=== PATIENT | female | born 1955 | race Caucasian/White ===

== ENCOUNTER 2017-01-21 20:00 | Emergency (ER) | payer MEDICARE ==
[2017-01-21] MEDS ORDERED: ASPIRIN TABLET 325 MG TAB PO ONE (20:14)
[2017-01-21] MEDS ORDERED: SODIUM CHLORIDE 0.9% (FLUSH) 10 ML SYG IV PRN (20:14)
--- NOTE | 2017-01-21 20:38 | ED.PDOC ---
History of Present Illness - General Chief Complaint: Chest Pain/MA Stated Complaint: chest pain/defrillator firing Time Seen by Provider: 01/21/17 20:24 Source: patient, RN notes reviewed, Vital Signs reviewed, EMS notes reviewed Exam Limitations: no limitations - History of Present Illness Initial Comments: Patient is a 61 y/o female who has a pacemaker and defibrillator. Since 1840, her defibrillator has gove off 4 times. She had no chest pain prior to the initial shock, however since then has had chest pain, pressure, shortness of breath, diaphoresis, nausea, and a severe headache. Her Electrocardiologist is Dr. Edwardo Love in [facility]. Timing/Duration: 1-3 hours Severity: moderate, severe Improving Factors: nothing Worsening Factors: other - defibrillator firing Associated Symptoms: chest pain, diaphoresis, headaches, nausea/vomiting, shortness of breath Allergies/Adverse Reactions: Allergies Erythromycin Allergy (Severe, Verified 04/26/16 16:25) Other severe GI issues Nicergoline [Ergot Alkaloids] Allergy (Severe, Verified 04/26/16 16:25) Sulfa Drugs Allergy (Intermediate, Verified 04/26/16 16:25) Other severe yeast infection Sitagliptin [From Januvia] Adverse Reaction (Verified 04/26/16 16:25) Home Medications: Ambulatory Orders Furosemide 40 mg PO BID 11/05/13 Budesonide-Formoterol Fumarate [Symbicort 160-4.5 Mcg/Act] 1 inh IN BID Celecoxib [Celebrex] 200 mg PO DAILY 02/08/16 Cetirizine HCl [Zyrtec Allergy] 10 mg PO DAILY PRN 02/08/16 Clonazepam [Klonopin] 1 mg PO BEDTIME 02/08/16 DULoxetine HCL [Cymbalta] 30 mg PO BID 02/08/16 Dextromethorphan-Guaifenesin [Mucinex Dm 30-600 mg] 1 tab PO Q12HR 02/08/16 Ergocalciferol [Vitamin D] 50,000 unit PO WKLY 02/08/16 Fluticasone Propionate (Nasal) [Flonase Allergy Relief] 2 spray MADIE DAILY Hydroxychloroquine Sulfate [Hydroxychloroquine Sulfat] 400 mg PO DAILY 02/08/16 Insulin Glargine [Lantus Solostar] 73 unit SC BID 02/08/16 Insulin Lispro [Humalog] 100 unit SC .SLIDING SCALE 02/08/16 Ipratropium [place] Hfa [Atrovent Hfa] 2 puff INH QID PRN 02/08/16 Levalbuterol HCl [Xopenex] 1.25 mg INH QID PRN 02/08/16 Losartan Potassium [Cozaar] 50 mg PO DAILY 02/08/16 Metformin HCl 500 mg PO BIDFD 02/08/16 Nitroglycerin [Nitrostat] 0.4 mg SL Q5MIN PRN 02/08/16 Ondansetron [Zofran Odt] 4 mg PO Q6HR PRN 02/08/16 Oxycodone W/ Acetaminophen [Percocet 10-325 mg] 1 tab PO QID PRN 02/08/16 Promethazine HCl [Phenergan] 25 mg SD Q6H PRN 02/08/16 Quetiapine Fumarate [Seroquel] 200 mg PO BEDTIME 02/08/16 Vilazodone HCl [Viibryd] 40 mg PO DAILY 02/08/16 Warfarin Sodium [Coumadin] 4 mg PO DAILY 02/08/16 cloNAZepam [Klonopin] 0.5 mg PO DAILY 02/08/16 Naloxegol Oxalate [Movantik] 25 mg PO DAILY #8 tab 02/11/16 Enoxaparin Sodium [Lovenox] 80 mg SUBCU DAILY 06/12/16 Lidocaine HCl [Enovarx-Lidocaine HCl] 5 % EX PRN 06/12/16 Mupirocin 2 % Oint [Bactroban Oint] 1 each TOP PRN 06/12/16 Pancrelipase (Lipase-Protease- [Creon 07142 Unit] 2 units PO TID 06/12/16 Pantoprazole Sodium [Protonix] 40 mg PO DAILY 06/12/16 Pregabalin [Lyrica] 25 mg PO BID 06/12/16 Levofloxacin [Levaquin] 250 mg PO DAILY #10 tab 09/12/16 Review of Systems - Review of Systems Constitutional: States: no symptoms reported EENTM: States: blurred vision Respiratory: States: short of breath Cardiology: States: chest pain Gastrointestinal/Abdominal: States: nausea Genitourinary: States: other - urinary hesitancy Musculoskeletal: States: back pain Skin: States: no symptoms reported Neurological: States: headache Endocrine: States: no symptoms reported Hematologic/Lymphatic: States: easy bruising Past Medical History (General) - Patient Medical History Hx Seizures: No Hx Stroke: No Hx Dementia: No Hx Asthma: No Hx of COPD: No Hx Cardiac Disorders: Yes - [place] Hx Congestive Heart Failure: No Hx Pacemaker: Yes - with defib Hx Hypertension: Yes Hx Thyroid Disease: Yes - parathyroids Hx Diabetes: Yes Hx Gastroesophageal Reflux: No - Takes medication to assist with constipation Hx Renal Disease: No Hx Cancer: No Hx of HIV: No Hx Hepatitis C: No Hx MRSA: No MRSA Source:: Wound - Vaccination History Hx Tetanus, Diphtheria Vaccination: Yes Hx Influenza Vaccination: No - 2016 Hx Pneumococcal Vaccination: Yes - Social History Hx Tobacco Use: Yes - Quit 2004 Hx Alcohol Use: No Hx Substance Use: No Hx Substance Use Treatment: No Hx Depression: No Hx Physical Abuse: No Hx Emotional Abuse: No Hx Suspected Abuse: No - Female History Patient : No Family Medical History - Family History Father Living Status: Age at (years of age): 69 Cause of : heart Mother Living Status: Still Living Hx Family Hypertension: Yes Hx Family Diabetes: Yes Physical Exam - Physical Exam General Appearance: Alert, Anxious, Obvious distress Ears, Nose, Throat: hearing grossly normal, normal ENT inspection Neck: full range of motion, normal inspection Respiratory: lungs clear, normal breath sounds, no respiratory distress, no accessory muscle use Cardiovascular/Chest: normal peripheral pulses, regular rate, rhythm, no edema, no gallop, no murmur Gastrointestinal/Abdominal: normal bowel sounds, non tender, soft, no organomegaly Extremity: normal inspection, no pedal edema Neurologic: alert, normal mood/affect, oriented x 3 Skin Exam: normal color, warm/dry Progress - Results/Orders Results/Orders: 01/21/17 01/21/17 01/21/17 20:05 20:15 21:01 Pulse Rate 80 Pulse Rate [ 81 88 78 monitor] Respiratory 16 20 Rate Blood Pressure 154/82 163/84 [Left Arm] O2 Sat by Pulse 97 96 Oximetry - EKG/XRAY/CT EKG: Sinus - 90 bpm - paced, Unchanged from - 07/25/2015 - 99bpm paced XRAY: chest Xray Comments: No acute process - Consult/PCP Time Called: 20:30 Consult/PCP: Dr. Rodriguez - certified rehabilitation counselor for Dr. Love Consult Reason/Comments: Transfer to ED in [place]. Start Amiodarone, 150 bolus, then drip Departure - Departure Clinical Impression: Defibrillator discharge Chest pain Qualifiers: Chest pain type: unspecified Qualifier Code: (R07.9) Chest pain, unspecified Time of Disposition: 21:10 Disposition: Transfer to Hospital Home Medications: Ambulatory Orders Furosemide 40 mg PO BID 11/05/13 Budesonide-Formoterol Fumarate [Symbicort 160-4.5 Mcg/Act] 1 inh IN BID Celecoxib [Celebrex] 200 mg PO DAILY 02/08/16 Cetirizine HCl [Zyrtec Allergy] 10 mg PO DAILY PRN 02/08/16 Clonazepam [Klonopin] 1 mg PO BEDTIME 02/08/16 DULoxetine HCL [Cymbalta] 30 mg PO BID 02/08/16 Dextromethorphan-Guaifenesin [Mucinex Dm 30-600 mg] 1 tab PO Q12HR 02/08/16 Ergocalciferol [Vitamin D] 50,000 unit PO WKLY 02/08/16 Fluticasone Propionate (Nasal) [Flonase Allergy Relief] 2 spray MADIE DAILY Hydroxychloroquine Sulfate [Hydroxychloroquine Sulfat] 400 mg PO DAILY 02/08/16 Insulin Glargine [Lantus Solostar] 73 unit SC BID 02/08/16 Insulin Lispro [Humalog] 100 unit SC .SLIDING SCALE 02/08/16 Ipratropium [place] Hfa [Atrovent Hfa] 2 puff INH QID PRN 02/08/16 Levalbuterol HCl [Xopenex] 1.25 mg INH QID PRN 02/08/16 Losartan Potassium [Cozaar] 50 mg PO DAILY 02/08/16 Metformin HCl 500 mg PO BIDFD 02/08/16 Nitroglycerin [Nitrostat] 0.4 mg SL Q5MIN PRN 02/08/16 Ondansetron [Zofran Odt] 4 mg PO Q6HR PRN 02/08/16 Oxycodone W/ Acetaminophen [Percocet 10-325 mg] 1 tab PO QID PRN 02/08/16 Promethazine HCl [Phenergan] 25 mg SD Q6H PRN 02/08/16 Quetiapine Fumarate [Seroquel] 200 mg PO BEDTIME 02/08/16 Vilazodone HCl [Viibryd] 40 mg PO DAILY 02/08/16 Warfarin Sodium [Coumadin] 4 mg PO DAILY 02/08/16 cloNAZepam [Klonopin] 0.5 mg PO DAILY 02/08/16 Naloxegol Oxalate [Movantik] 25 mg PO DAILY #8 tab 02/11/16 Enoxaparin Sodium [Lovenox] 80 mg SUBCU DAILY 06/12/16 Lidocaine HCl [Enovarx-Lidocaine HCl] 5 % EX PRN 06/12/16 Mupirocin 2 % Oint [Bactroban Oint] 1 each TOP PRN 06/12/16 Pancrelipase (Lipase-Protease- [Creon 32056 Unit] 2 units PO TID 06/12/16 Pantoprazole Sodium [Protonix] 40 mg PO DAILY 06/12/16 Pregabalin [Lyrica] 25 mg PO BID 06/12/16 Levofloxacin [Levaquin] 250 mg PO DAILY #10 tab 09/12/16 Transfer to Outside Facility - Transfer Information Accepting Facility: [facility] Reason for Transfer: required specialist not available
[2017-01-21] MEDS ORDERED: AMIODARONE IV (LOAD) 150 MG in DEXTROSE 5% 100ML 100 ML IVPB ONE (20:45)
--- NOTE | 2017-01-21 20:48 | RAD ---
PROCEDURE: XR CHEST 1 VIEW HISTORY: chest pain COMPARISON: 10/02/2016 TECHNIQUE: Single projection of the chest was done. FINDINGS: The left-sided AICD device is stable . There are no discrete airspace infiltrates, pneumothoraces or pleural effusions. The pulmonary vascularity is normal. The cardiomediastinal contour is stable . IMPRESSION: There is no acute pleural-parenchymal process seen in the imaged lung [place]. Location of Interpretation: Teleradiology Electronically signed by: Ismael Cook MD 01/21/2017 8:47 PM [employer]
[2017-01-21] MEDS ORDERED: AMIODARONE HCL 150 MG/3 ML VIAL IVPB ONE (20:52)
[2017-01-21] MEDS ORDERED: DEXTROSE 5% 100ML 100 ML IVPB ONE (20:52)
[2017-01-21] MEDS ORDERED: AMIODARONE IV (MAINT) 900 MG in DEXTROSE 5% (AVIVA) 500ML 500 ML IVPB SCH (21:00)
[2017-01-21] MEDS ORDERED: AMIODARONE HCL 900 MG/18 ML VIAL IVPB ONE (21:10)
[2017-01-21] MEDS ORDERED: DEXTROSE 5% (AVIVA) 500ML 500 ML IVPB ONE (21:10)
[2017-01-21] MEDS ORDERED: SODIUM CHLORIDE 0.9% 1000ML 1,000 ML ONE (21:17)
[2017-01-21 21:19] VITALS: BP 151/108; O2SAT 95
[2017-01-21 21:21] VITALS: TEMP 98.4
== END 2017-01-21 21:45 | disposition short-term general hospital (02) ==
LOC: ER 20:00
DX: T82.198A Other mechanical complication of other cardiac electronic device, initial encounter (principal); R07.9 Chest pain, unspecified; I25.2 Old myocardial infarction; I10 Essential (primary) hypertension; Z87.891 Personal history of nicotine dependence; E20.9 Hypoparathyroidism, unspecified; E11.9 Type 2 diabetes mellitus without complications; Z79.899 Other long term (current) drug therapy; Z79.4 Long term (current) use of insulin; Z79.01 Long term (current) use of anticoagulants; Z88.2 Allergy status to sulfonamides; Z88.3 Allergy status to other anti-infective agents
CPT/HCPCS: 71010; 80048; 82550; 82553; 83880; 84484; 85025; 85610; 85730; 93005; 94760; J0282; J7030; J7060

== ENCOUNTER → 2017-05-06 | Outpatient (CLI) | payer MEDICARE | END | disposition home or self-care (01) | LOC: NC 12:00 | PROVIDERS: ATTEND Family Medicine | DX: I50.32 Chronic diastolic (congestive) heart failure (principal); E11.9 Type 2 diabetes mellitus without complications; E03.9 Hypothyroidism, unspecified; M79.7 Fibromyalgia; R30.0 Dysuria ==

== ENCOUNTER → 2017-05-15 | Outpatient (CLI) | payer MEDICARE | END | disposition home or self-care (01) | LOC: NC 15:33 | PROVIDERS: ATTEND Family Medicine | DX: I11.0 Hypertensive heart disease with heart failure (principal); I50.22 Chronic systolic (congestive) heart failure ==

== ENCOUNTER → 2017-05-29 | Outpatient (CLI) | payer MEDICARE | END | disposition home or self-care (01) | LOC: NC 17:13 | PROVIDERS: ATTEND Family Medicine | DX: I11.0 Hypertensive heart disease with heart failure (principal); I50.22 Chronic systolic (congestive) heart failure ==

== ENCOUNTER → 2017-06-05 | Outpatient (CLI) | payer MEDICARE | END | disposition home or self-care (01) | LOC: NC 11:52 | PROVIDERS: ATTEND Family Medicine | DX: I11.0 Hypertensive heart disease with heart failure (principal); I50.22 Chronic systolic (congestive) heart failure ==

== ENCOUNTER → 2017-06-11 | Outpatient (CLI) | payer MEDICARE | LOC: NC 17:26 | PROVIDERS: ATTEND Family Medicine | DX: I50.22 Chronic systolic (congestive) heart failure (principal); I11.0 Hypertensive heart disease with heart failure ==

== ENCOUNTER → 2017-06-16 | Outpatient (CLI) | payer MEDICARE | END | disposition home or self-care (01) | LOC: NC 16:51 | PROVIDERS: ATTEND Family Medicine | DX: I50.22 Chronic systolic (congestive) heart failure (principal) ==

== ENCOUNTER → 2017-06-20 | Outpatient (CLI) | payer MEDICARE | END | disposition home or self-care (01) | LOC: NC 11:12 | PROVIDERS: ATTEND Family Medicine | DX: I11.0 Hypertensive heart disease with heart failure (principal); I50.22 Chronic systolic (congestive) heart failure; E11.9 Type 2 diabetes mellitus without complications ==

== ENCOUNTER → 2017-06-25 | Outpatient (CLI) | payer MEDICARE | END | disposition home or self-care (01) | LOC: NC 15:11 | PROVIDERS: ATTEND Family Medicine | DX: I11.0 Hypertensive heart disease with heart failure (principal); I50.22 Chronic systolic (congestive) heart failure; J44.9 Chronic obstructive pulmonary disease, unspecified; E11.9 Type 2 diabetes mellitus without complications; M19.90 Unspecified osteoarthritis, unspecified site ==

== ENCOUNTER → 2017-07-02 | Outpatient (CLI) | payer MEDICARE | END | disposition home or self-care (01) | LOC: NC 15:58 | PROVIDERS: ATTEND Family Medicine | DX: I11.0 Hypertensive heart disease with heart failure (principal); I50.22 Chronic systolic (congestive) heart failure; E11.9 Type 2 diabetes mellitus without complications; J44.9 Chronic obstructive pulmonary disease, unspecified ==

== ENCOUNTER 2017-07-03 12:33 | Observation (INO) | payer MEDICARE, OTHER ==
[2017-07-03] MEDS ORDERED: SUCRALFATE 1 GM/10 ML 1 GM UD PO ONE (13:08)
[2017-07-03] MEDS ORDERED: SODIUM CHLORIDE 0.9% 1000ML 1,000 ML IVS ONE (13:08)
[2017-07-03] MEDS ORDERED: PANTOPRAZOLE SODIUM IV 40 MG VIAL IV ONE (13:08)
[2017-07-03] MEDS ORDERED: PROMETHAZINE HCL INJ 25 MG in SODIUM CHLORIDE 0.9% 50ML 50 ML IVPB ONE (13:08)
--- NOTE | 2017-07-03 13:37 | RAD ---
3 view abdomen. Indication: nvd 3d Comparison: May 14, 2016 Impression: Moderately megaly. Right pacemaker. No failure. Lungs clear. Surgical construct proximal right humerus. Cholecystectomy clips. No free air. Mild constipation noted. No signs of small bowel insertion. Projecting over the medial right acetabulum/root there is ill-defined high density, which likely reflects high density material within the cecum. A lesion of the acetabulum is felt much less likely. Follow-up radiographs in one week recommended to ensure resolution of this appearance. No abnormal calcifications. No acute osseous abnormality. Electronically signed by: Lorenzo Florez MD 07/03/2017 1:36 PM CDT
[2017-07-03] MEDS ORDERED: SODIUM CHLORIDE 0.9% 50ML 50 ML ONE (13:39)
[2017-07-03] MEDS ORDERED: PROMETHAZINE HCL INJ 25 MG/ML VIAL ONE (13:39)
[2017-07-03] MEDS ORDERED: INSULIN LISPRO 100 UNITS/ML PEN SUBCU ONE (14:26)
[2017-07-03] MEDS ORDERED: MAGNESIUM SULFATE PREMIX 2GM 2 GM in PREMIX BAG 1 BAG IVPB ONE (14:27)
[2017-07-03] MEDS ORDERED: MAGNESIUM SULFATE PREMIX 2GM 50 ML IVPB ONE (14:36)
--- NOTE | 2017-07-03 14:39 | ED.PDOC ---
History of Present Illness - General Chief Complaint: GI Problem Stated Complaint: N/V/D Time Seen by Provider: 07/03/17 12:39 Source: patient Exam Limitations: no limitations - History of Present Illness Initial Comments: The patient is a 62-year-old female with a multitude of chronic medical problems sent up by her primary care doctor and home health for 3 days of nausea vomiting and diarrhea. No fevers. No real abdominal pain. She does have a history of recurrent chronic pancreatitis. No recent medication changes. No recent antibiotics. She has not been able to eat or drink very well for the last few days. She has also not been following her blood sugars closely. She is an insulin-dependent diabetic. She is feeling weak and achy. Severity: moderate Improving Factors: nothing Worsening Factors: nothing Associated Symptoms: loss of appetite, malaise, nausea/vomiting, weakness Allergies/Adverse Reactions: Allergies Erythromycin Allergy (Severe, Verified 04/26/16 16:25) Other severe GI issues Nicergoline [Ergot Alkaloids] Allergy (Severe, Verified 04/26/16 16:25) Sulfa Drugs Allergy (Intermediate, Verified 04/26/16 16:25) Other severe yeast infection Sitagliptin [From Januvia] Adverse Reaction (Verified 04/26/16 16:25) Home Medications: Ambulatory Orders Furosemide 40 mg PO BID 11/05/13 Budesonide-Formoterol Fumarate [Symbicort 160-4.5 Mcg/Act] 1 inh IN BID Celecoxib [Celebrex] 200 mg PO DAILY 02/08/16 Cetirizine HCl [Zyrtec Allergy] 10 mg PO DAILY PRN 02/08/16 Clonazepam [Klonopin] 1 mg PO BEDTIME 02/08/16 DULoxetine HCL [Cymbalta] 30 mg PO BID 02/08/16 Dextromethorphan-Guaifenesin [Mucinex Dm 30-600 mg] 1 tab PO Q12HR 02/08/16 Ergocalciferol [Vitamin D] 50,000 unit PO WKLY 02/08/16 Fluticasone Propionate (Nasal) [Flonase Allergy Relief] 2 spray MADIE DAILY Hydroxychloroquine Sulfate [Hydroxychloroquine Sulfat] 400 mg PO DAILY 02/08/16 Insulin Glargine [Lantus Solostar] 73 unit SC BID 02/08/16 Insulin Lispro [Humalog] 100 unit SC .SLIDING SCALE 02/08/16 Ipratropium [place] Hfa [Atrovent Hfa] 2 puff INH QID PRN 02/08/16 Levalbuterol HCl [Xopenex] 1.25 mg INH QID PRN 02/08/16 Losartan Potassium [Cozaar] 50 mg PO DAILY 02/08/16 Metformin HCl 500 mg PO BIDFD 02/08/16 Nitroglycerin [Nitrostat] 0.4 mg SL Q5MIN PRN 02/08/16 Ondansetron [Zofran Odt] 4 mg PO Q6HR PRN 02/08/16 Oxycodone W/ Acetaminophen [Percocet 10-325 mg] 1 tab PO QID PRN 02/08/16 Promethazine HCl [Phenergan] 25 mg OK Q6H PRN 02/08/16 Quetiapine Fumarate [Seroquel] 200 mg PO BEDTIME 02/08/16 Vilazodone HCl [Viibryd] 40 mg PO DAILY 02/08/16 Warfarin Sodium [Coumadin] 4 mg PO DAILY 02/08/16 cloNAZepam [Klonopin] 0.5 mg PO DAILY 02/08/16 Naloxegol Oxalate [Movantik] 25 mg PO DAILY #8 tab 02/11/16 Enoxaparin Sodium [Lovenox] 80 mg SUBCU DAILY 06/12/16 Lidocaine HCl [Enovarx-Lidocaine HCl] 5 % EX PRN 06/12/16 Mupirocin 2 % Oint [Bactroban Oint] 1 each TOP PRN 06/12/16 Pancrelipase (Lipase-Protease- [Creon 07984 Unit] 2 units PO TID 06/12/16 Pantoprazole Tablet [Protonix] 40 mg PO DAILY 06/12/16 Pregabalin [Lyrica] 25 mg PO BID 06/12/16 Levofloxacin [Levaquin] 250 mg PO DAILY #10 tab 09/12/16 Review of Systems - Review of Systems Constitutional: States: malaise, weakness EENTM: States: no symptoms reported Respiratory: States: no symptoms reported Cardiology: States: no symptoms reported Gastrointestinal/Abdominal: States: diarrhea, nausea, vomiting Genitourinary: States: no symptoms reported Musculoskeletal: States: no symptoms reported Skin: States: no symptoms reported Neurological: States: no symptoms reported Endocrine: States: increased thirst All other Systems: No Change from Baseline Past Medical History (General) - Patient Medical History Hx Seizures: No Hx Stroke: No Hx Dementia: No Hx Asthma: No Hx of COPD: No Hx Cardiac Disorders: Yes - RI Hx Congestive Heart Failure: No Hx Pacemaker: Yes - with defib Hx Hypertension: Yes Hx Thyroid Disease: Yes - parathyroids Hx Diabetes: Yes Hx Gastroesophageal Reflux: No - Takes medication to assist with constipation Hx Renal Disease: No Hx Cancer: No Hx of HIV: No Hx Hepatitis C: No Hx MRSA: No MRSA Source:: Wound Surgical History: cholecystectomy, pacemaker, tonsillectomy, Hysterectomy - Vaccination History Hx Tetanus, Diphtheria Vaccination: Yes Hx Influenza Vaccination: Yes Hx Pneumococcal Vaccination: Yes - Social History Hx Tobacco Use: Yes Hx Alcohol Use: Yes Hx Substance Use: No Hx Substance Use Treatment: No Hx Depression: Yes Hx Physical Abuse: No Hx Emotional Abuse: No Hx Suspected Abuse: No - Female History Patient : No Family Medical History - Family History Father Living Status: Age at (years of age): 69 Cause of : heart Mother Living Status: Still Living Hx Family Hypertension: Yes Hx Family Diabetes: Yes Physical Exam - Physical Exam General Appearance: Alert, Comfortable, No apparent distress Eye Exam: bilateral normal Ears, Nose, Throat: hearing grossly normal, normal ENT inspection, normal pharynx Neck: non-tender, full range of motion, supple Respiratory: chest non-tender, lungs clear, normal breath sounds, no respiratory distress, no accessory muscle use Cardiovascular/Chest: normal peripheral pulses, no edema, other - regular rate Peripheral Pulses: radial,right: 2+, radial,left: 2+, dorsalis pedis,right: 2+, dorsalis pedis,left: 2+ Gastrointestinal/Abdominal: non tender, soft Rectal Exam: deferred Back Exam: no CVA tenderness, no vertebral tenderness Extremity: normal range of motion, non-tender, normal inspection, no pedal edema , normal capillary refill 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 The patient does have a history of chronic pancreatitis which may be giving the symptoms however her amylase and lipase are within normal limits. Constipation is seen on the x-ray and that is along-term problem for her and this may ultimately be the cause of her GI symptoms. The patient does have a low magnesium level and is given some IV magnesium here. She is dehydrated and is receiving IV fluids. Her diabetes is uncontrolled likely related to dehydration. The patient did receive 7 units of insulin lispro and will need a recheck. She does not appear to be acidotic at this time. A urinalysis is still pending. She has responded well to anti- emetics here. admit for further hydration and correction of her diabetes. The patient may yet need a laxative. She has received GI medications for the gastritis and nausea. - Results/Orders Results/Orders: Laboratory Tests 07/03/17 07/03/17 07/03/17 13:10 13:10 13:10 WBC 5.7 RBC 5.26 Hgb 14.0 Hct 42.0 MCV 79.7 L MCH 26.6 L MCHC 33.4 RDW 14.5 Plt Count 169 MPV 8.4 Absolute Neuts (auto) 3.90 Absolute Lymphs (auto) 1.30 Absolute Monos (auto) 0.30 Absolute Eos (auto) 0.10 Absolute Basos (auto) 0.10 Neutrophils % 69.1 Lymphocytes % 22.5 Monocytes % 5.8 Eosinophils % 1.6 Basophils % 1.0 PT 14.2 H INR 1.260 PTT (SP) 37.8 H Sodium 136 Potassium 4.4 Chloride 98 L Carbon Dioxide 24 Anion Gap 18.4 H BUN 16 Creatinine 1.06 BUN/Creatinine Ratio 15.1 Random Glucose 385 H Serum Osmolality 289.1 Calcium 10.5 H Magnesium 1.6 L Total Bilirubin 0.8 AST 36 ALT 81 H Alkaline Phosphatase 121 Creatine Kinase 97 CK-MB (CK-2) 2.1 CK-MB (CK-2) % Not Reportable Troponin I 0.05 B-Natriuretic Peptide 116.0 H Serum Total Protein 7.7 Albumin 4.6 Globulin 3.1 Albumin/Globulin Ratio 1.5 Amylase 38 Lipase 47 urinalysis is still pending at this time. Abdominal series shows moderate constipation. Otherwise no acute pathology. Departure - Departure Clinical Impression: Dehydration Constipation Qualifiers: Constipation type: slow transit constipation Qualified Code(s): K59.01 - Slow transit constipation Uncontrolled diabetes mellitus Qualifiers: Diabetes mellitus type: type 2 Diabetes mellitus complication status: with unspecified complications Disposition: Admit Patient Referrals: Albert Soliman MD [Primary Care Provider] - 1-2 Weeks Home Medications: Ambulatory Orders Furosemide 40 mg PO BID 11/05/13 Budesonide-Formoterol Fumarate [Symbicort 160-4.5 Mcg/Act] 1 inh IN BID Celecoxib [Celebrex] 200 mg PO DAILY 02/08/16 Cetirizine HCl [Zyrtec Allergy] 10 mg PO DAILY PRN 02/08/16 Clonazepam [Klonopin] 1 mg PO BEDTIME 02/08/16 DULoxetine HCL [Cymbalta] 30 mg PO BID 02/08/16 Dextromethorphan-Guaifenesin [Mucinex Dm 30-600 mg] 1 tab PO Q12HR 02/08/16 Ergocalciferol [Vitamin D] 50,000 unit PO WKLY 02/08/16 Fluticasone Propionate (Nasal) [Flonase Allergy Relief] 2 spray MADIE DAILY Hydroxychloroquine Sulfate [Hydroxychloroquine Sulfat] 400 mg PO DAILY 02/08/16 Insulin Glargine [Lantus Solostar] 73 unit SC BID 02/08/16 Insulin Lispro [Humalog] 100 unit SC .SLIDING SCALE 02/08/16 Ipratropium [place] Hfa [Atrovent Hfa] 2 puff INH QID PRN 02/08/16 Levalbuterol HCl [Xopenex] 1.25 mg INH QID PRN 02/08/16 Losartan Potassium [Cozaar] 50 mg PO DAILY 02/08/16 Metformin HCl 500 mg PO BIDFD 02/08/16 Nitroglycerin [Nitrostat] 0.4 mg SL Q5MIN PRN 02/08/16 Ondansetron [Zofran Odt] 4 mg PO Q6HR PRN 02/08/16 Oxycodone W/ Acetaminophen [Percocet 10-325 mg] 1 tab PO QID PRN 02/08/16 Promethazine HCl [Phenergan] 25 mg OK Q6H PRN 02/08/16 Quetiapine Fumarate [Seroquel] 200 mg PO BEDTIME 02/08/16 Vilazodone HCl [Viibryd] 40 mg PO DAILY 02/08/16 Warfarin Sodium [Coumadin] 4 mg PO DAILY 02/08/16 cloNAZepam [Klonopin] 0.5 mg PO DAILY 02/08/16 Naloxegol Oxalate [Movantik] 25 mg PO DAILY #8 tab 02/11/16 Enoxaparin Sodium [Lovenox] 80 mg SUBCU DAILY 06/12/16 Lidocaine HCl [Enovarx-Lidocaine HCl] 5 % EX PRN 06/12/16 Mupirocin 2 % Oint [Bactroban Oint] 1 each TOP PRN 06/12/16 Pancrelipase (Lipase-Protease- [Creon 42322 Unit] 2 units PO TID 06/12/16 Pantoprazole Tablet [Protonix] 40 mg PO DAILY 06/12/16 Pregabalin [Lyrica] 25 mg PO BID 06/12/16 Levofloxacin [Levaquin] 250 mg PO DAILY #10 tab 09/12/16 Decision To Admit - Decistion To Admit Decision to Admit Reason: Medical Nature Decision to Admit Date: 07/03/17 Decision to Admit Time: 14:43
--- NOTE | 2017-07-03 14:50 | HP ---
SUPERVISING PHYSICIAN: Karri Kim M.D. CHIEF COMPLAINT: Nausea, vomiting and diarrhea. HISTORY OF PRESENT ILLNESS: Ms. Mendez is a 62 year-old female patient of Dr. Soliman's with a longstanding history of multiple medical problems to include diabetes and chronic obstructive pulmonary disease. She was referred to [facility] by the home health nurse as the patient had been experiencing 3 days of nausea, vomiting and diarrhea. She denied any fever or any abdominal pains, but notes that she does have a recurring history of chronic pancreatitis. She denied any recent changes in her medication regimen or any antibiotics in the last month. She notes that she has not been able to eat or drink very well for over the last 48 hours. She has not been monitoring her blood sugars very well as she is insulin dependent. Laboratory studies showed CBC with a normal white count of 5.7, hemoglobin 14, hematocrit 42.0, platelet count 169,000. Differential was within normal limits. Chemistries showed normal electrolytes with potassium 4.4, glucose 385, calcium 2.5, magnesium was low at 1.6. Liver functions showed a slightly elevated ALT at 81 , BNP was normal at 116 as well as her pancreatic enzymes were within normal limits on admission. Urinalysis showed just 500 glucose, otherwise was within normal limits. Radiographic studies completed in the Emergency Room included an abdominal x-ray and per radiology interpretation there was note of constipation. The patient was given magnesium sulfate IV in the Emergency Department and Phenergan for nausea, and started on Protonix as well as given insulin. Given her multiple co-morbidities including insulin-dependent diabetes and inability to hold any oral intake secondary to nausea complicated by diarrhea, Dr. Soliman, Janna Russell. physician, requested the patient be admitted for continuation of treatment for initiation of fluids and further evaluation. There is concern that the patient, with a history of chronic pancreatitis, is in the early stages of developing acute pancreatitis. The patient was admitted in stable condition to the Medical/Surgical floor. PAST MEDICAL HISTORY: 1. Type 2 diabetes mellitus on insulin. 2. Congestive heart failure, estimated ejection fraction of 40% by an echocardiogram noted on 05/2017. 3. Systolic atrial blood clot on chronic Coumadin therapy. 4. Asthma. 5. Chronic obstructive pulmonary disease. 6. Chronic pancreatitis. 7. Migraines. 8. Hypothyroidism. 9. Osteoarthritis. 10. Depression. 11. Gastroesophageal reflux disease. 12. Hyperlipidemia. 13. Osteoporosis. 14. Fibromyalgia. 15. Iron deficiency anemia. PAST SURGICAL HISTORY: 1. Appendectomy. 2. Cholecystectomy. 3. Thyroidectomy. 4. Hysterectomy. 5. Laminectomy of L4-L5. 6. Titanium chrystal in right arm. 7. Dilatation and curettage. CURRENT MEDICATIONS: 1. Toujeo 120 unit at bedtime. 2. [place] 1 tablet p.r.n. 3. Humalog sliding scale. 4. Flonase 2 sprays daily. 5. Symbicort 160-4.5 mcg per actuation 1 inhaled twice daily. 6. Benadryl 25 mg at bedtime. 7. Klonopin 0.5 mg daily. 8. Coumadin 4 mg daily. 9. Trintellix 10 mg daily. 10. Seroquel 200 mg at bedtime. 11. Seroquel 200 mg at bedtime. 12. Phenergan 25 mg every 6 hours p.r.n. for nausea. 13. Creon 24,000 unit, 2 units p.o. 3 times a day. 14. Nitrostat 0.4 mg for chest pains. 15. Metformin 500 mg twice daily. 16. Cozaar 50 mg daily. 17. Xopenex 1.25 mg q.i.d. p.r.n. 18. Atrovent handheld inhaler 2 puffs q.i.d. as needed. 19. Guaifenesin 40 mg daily. 20. Klonopin 1 mg at bedtime. 21. Zyrtec allergy 10 mg daily. 22. Fiber-Lax 625 mg daily. ALLERGIES: ERYTHROMYCIN, NICERGOLINE, SULFA DRUGS, SITAGLIPTIN, ERGOT, ALKALOIDS. FAMILY HISTORY: Father at age 69 with heart problems. Mother has hypertension and type 2 diabetes. She has 1 sister who has had brain cancer. SOCIAL HISTORY: The patient is . She lives with her mother and daughter. She has a history of cigarette smoking but quit 30 years ago. She denies any alcohol or illicit drug use. REVIEW OF SYSTEMS: CONSTITUTIONAL: Has general malaise and weakness as noted in the History of Present Illness. Denies any fevers, chills or unintentional weight loss or gain. HEENT: Denies any nasal congestion. She does have a history of allergies seasonal. RESPIRATORY: No reported cough, dyspnea or wheezing. CARDIOVASCULAR: No chest pains, palpitations or tachycardia. GASTROINTESTINAL: As noted in the History of Present Illness, positive for nausea, vomiting and diarrhea. NEUROLOGIC: Denies any syncopal episodes, vision changes, motor weaknesses or other neurological symptoms. PHYSICAL EXAMINATION: VITAL SIGNS: On admission, temperature 97.1, pulse 79, blood pressure 157/83, respirations 13, satting 97% on room air. Admission weight 76.6 kg. GENERAL: The patient appears to be in no acute distress. She is ill-appearing but she is alert. Looks somewhat dehydrated. HEENT: Tympanic membranes are clear bilaterally. Oropharynx was pink. Mucosal membranes were dry. There are no lesions noted. NECK: Supple, non-tender with full range of motion with no jugular venous distention. CHEST: Lungs were clear to auscultation bilaterally without any rhonchi, wheezing or rales. CARDIOVASCULAR: Heart was regular rate and rhythm without appreciable murmurs, gallops, or rubs. ABDOMEN: Non-tender, soft. Positive bowel sounds. She has a past history of having black tarry stools for which she is being followed by Dr. Price. EXTREMITIES: No clubbing, cyanosis or edema. NEUROLOGIC: Cranial nerves II-XII are grossly intact. She is alert and oriented times three. Facial features were symmetrical. Extraocular movements were within normal limits. There was no noted nystagmus. LABORATORY: CBC showed a normal white count of 5.7 with hemoglobin 14, hematocrit 42.0, platelet count 169,000. Differential did show to be within normal limits. Coagulation studies showed a slightly elevated PT of 14.2 with INR 1.26, PTT 37.8. Chemistries showed normal electrolytes with potassium 4.4 with an elevated anion gap of 18.4 with BUN 16, creatinine 1.06, glucose was 385 initially, calcium 10.5, magnesium was low at 1.6. Liver functions showed to be within normal limits except for a slightly elevated ALT at 81. Troponin was 0.05. BNP was 116. Lipase and amylase were both within normal limits. Urinalysis showed 500 of glucose, otherwise within normal limits. RADIOLOGY: Abdominal x-ray per radiology interpretation showed mild constipation noted but no signs of small bowel obstruction. There was note of a medial right acetabular ill-defined high density likely reflects high density material within the cecum. Recommend followup. ASSESSMENT: 1. Moderate dehydration complicated by multiple co-morbidities to include history of chronic pancreatitis and insulin-dependent diabetes secondary to nausea , vomiting and diarrhea with uncertain etiology possibly a viral gastroenteritis. 2. Moderate constipation as noted on radiographic studies possibly contributing to some of her nausea and vomiting symptoms in a patient who is on chronic opioid therapy. 3. Hypomagnesemia secondary to persistent diarrhea. 4. Type 2 diabetes mellitus with metabolic acidosis as noted on elevated anion gap without any evidence of ketoacidosis secondary to persistent nausea, vomiting and dehydration, and poor medical compliance with insulin regimen. 5. Concern for developing acute on chronic pancreatitis. 6. Hypertension. 7. Gastroesophageal reflux disease. 8. Depression. 9. Congestive heart failure, estimated ejection fraction of 40% by an echocardiogram noted on 05/2017. 10. Systolic atrial blood clot on chronic Coumadin therapy. 11. Past history of melenic stools followed by Dr. Price felt to be secondary to iron therapy with a colonoscopy scheduled in the coming month. 12. Iron deficiency anemia on iron replacement. PLAN: The patient will be admitted to the hospital for initiation of fluids cautiously secondary to her history of heart failure to assist in reestablishing a normal fluid balance. She will be given Zofran for antiemetic. Given that she is moderately constipated, will start with a soap suds enema and once she has good results and is no longer having any nausea, will follow this up with Milk of Magnesia possibly in the morning. She will be started on Protonix IV for ulcer prophylaxis. She will be started on insulin sliding scale as per protocol. Will plan to repeat laboratory studies in the morning. Anticipate length of stay to be 2 to 3 days. She will remain NPO for bowel rest until she is no longer having any nausea and once again is showing good catharsis with the above enema and then Milk of Magnesia. At that point, will advance her diet as tolerated to an 1800 calorie ADA diet. Will resume her home medications once they have been updated and verified in the electronic medical records. Depending on the patient's clinical reassessment in the morning, we may pursue a CT of the abdomen to further evaluate for developing possibly pancreatitis. In regards to the Coumadin, will recheck a PT in the morning and followup on dosing with Dr. Soliman's office in regards to required therapeutic levels. Until discharge, will continue to monitor the patient closely and treat appropriately. #[id number] [facility]
[2017-07-03] MEDS ORDERED: ACETAMINOPHEN 325 MG TAB PO PRN (15:38)
[2017-07-03] MEDS ORDERED: SODIUM CHLORIDE 0.9% (FLUSH) 10 ML SYG IV PRN (15:38)
[2017-07-03] MEDS ORDERED: GLUCAGON INJ 1 MG VIAL SUBCU PRN (15:38)
[2017-07-03] MEDS ORDERED: DEXTROSE 50% 25 GM/50 ML SYG IV PRN (15:38)
[2017-07-03] MEDS ORDERED: MAGNESIUM HYDROXIDE 30 ML UD PO PRN (15:38)
[2017-07-03] MEDS ORDERED: IV SET AND CAP CHANGE INJ INJ SCH (16:00)
[2017-07-03] MEDS: KCL 20 MEQ/NS 1,000 ML IVS PRN (17:00)
[2017-07-03] MEDS: ONDANSETRON INJ 4 MG/2 ML VIAL IV PRN (17:00)
[2017-07-03] MEDS: INSULIN LISPRO 100 UNITS/ML PEN SUBCU SCH (18:07)
[2017-07-03] MEDS ORDERED: QUEtiapine FUMARATE 100 MG TAB ONE (19:49)
[2017-07-03] MEDS: diphenhydrAMINE HCL 25 MG CAP PO SCH (20:22)
[2017-07-03] MEDS: HYDROcodone 10MG/APAP 325MG 1 EA TAB PO SCH (20:23)
[2017-07-03] MEDS ORDERED: QUETIAPINE FUMARATE 200 MG PO SCH (21:00)
[2017-07-03] MEDS ORDERED: SODIUM CHLORIDE 0.9% (FLUSH) 10 ML SYG IV SCH (21:00)
[2017-07-03] MEDS ORDERED: NON-FORMULARY MEDICATION 1 EA MIS (Clonazepam [Klonopin] 1 MG) PO SCH (21:00)
[2017-07-03] MEDS ORDERED: INSULIN GLARGINE SC SCH (21:00)
[2017-07-03] MEDS: PANCRELIPASE PO SCH (21:26)
--- NOTE | 2017-07-03 21:41 | PCM.CORE ---
Physician DVT/VTE - Prophylaxis Currently: Patient already on anticoagulation therapy - Nurse DVT Assessment & Total Each Risk Factor Represents 3 Points: Medical PT with Hx of AL, CHF, Severe infection/sepsis Each Risk Factor Represents 2 Points: Age 60-74 Each Risk Factor is 1 Point: Obesity (BMI >25) DVT Assessment Score: 6 - 5 or more Very High Risk Treatments: Early Ambulation *, Sequential Compression Device Pharmacological: Warfarin daily
[2017-07-04] MEDS: INSULIN LISPRO 100 UNITS/ML PEN SUBCU SCH ×5 (00:26→21:02)
[2017-07-04] MEDS: HYDROcodone 10MG/APAP 325MG 1 EA TAB PO SCH (05:04)
[2017-07-04] MEDS: ONDANSETRON INJ 4 MG/2 ML VIAL IV PRN (05:04)
[2017-07-04] MEDS: KCL 20 MEQ/NS 1,000 ML IVS PRN ×2 (05:10→17:59)
[2017-07-04] MEDS: metFORMIN HCL 500 MG TAB PO SCH ×2 (07:53→16:31)
[2017-07-04] MEDS: BUDESONIDE/FORMOTEROL 160/4.5 60 PUFF/6 GM INH INH SCH ×3 (07:55→20:48)
[2017-07-04] MEDS ORDERED: WARFARIN SODIUM 2 MG TAB ONE (08:15)
[2017-07-04] MEDS: FLUTICASONE PROP 0.05% NASAL 16 GM BTTL BNAS SCH (09:16)
[2017-07-04] MEDS: CALCIUM POLYCARBOPHIL 625 MG TAB PO SCH (09:16)
[2017-07-04] MEDS: LOSARTAN POTASSIUM 25 MG TAB PO SCH (09:16)
[2017-07-04] MEDS: PANTOPRAZOLE SODIUM IV 40 MG VIAL IV SCH (09:17)
[2017-07-04] MEDS: PANCRELIPASE PO SCH ×3 (09:17→22:40)
[2017-07-04] MEDS: NON-FORMULARY MEDICATION 1 EA MIS (Vortioxetine Hbr [Trintellix] 10 MG) PO SCH (09:17)
[2017-07-04] MEDS: HYDROcodone 10MG/APAP 325MG 1 EA TAB PO PRN ×2 (09:50→20:39)
[2017-07-04] MEDS ORDERED: MAGNESIUM HYDROXIDE 30 ML UD PO ONE (10:12)
[2017-07-04] MEDS ORDERED: MAGNESIUM SULFATE PREMIX 2GM 2 GM in PREMIX BAG 1 BAG IVPB ONE (10:48)
[2017-07-04] MEDS ORDERED: MAGNESIUM SULFATE PREMIX 2GM 50 ML IVPB ONE (11:00)
[2017-07-04] MEDS: WARFARIN SODIUM 2 MG TAB PO SCH (11:57)
--- NOTE | 2017-07-04 16:23 | PN ---
DATE: 07-04-17 SUPERVISING PHYSICIAN: Karri Kim MD SUBJECTIVE: Patient reports she had minimal output with the enema last night. Blood sugars have been well controlled and she is no longer having any nausea or vomiting and denies any abdominal pains. She remains afebrile. OBJECTIVE: VITAL SIGNS: T-max 97,5, pulse 60, blood pressure 130/84, respirations 20, saturation 98% on nasal cannula at rest. I&O: positive balance of 173 with 1023 in and 850 out. Weight 77.5 kg. CHEST: Lungs clear to auscultation. HEART: Regular rate and rhythm . ABDOMEN: Soft, non-tender, partial small-bowel obstructions. EXTREMITIES: No cyanosis, clubbing, or edema. NEUROLOGIC: Alert and oriented x 3. LABORATORY: White count down to 4.4, hemoglobin 12.5, hematocrit 38.2, platelet count 155, 000, differential shows no left shift. Chemistries show normal electrolytes with potassium 4.4, glucoses have been 137 to 183, magnesium still low at 1.7. Liver functions showed to be within normal limits. Amylase and lipase were both normal. RADIOLOGY: No additional radiographic studies. ASSESSMENT: 1. Moderate dehydration improved after IV therapy. 2. Moderate constipation still requiring additional catharsis with both enema and oral medication.. 3. Hypomagnesemia, persistent despite IV replacement. . 4. Type 2 diabetes mellitus with metabolic acidosis as noted with elevated anion gap on admission but no ketoacidosis, probably secondary to persistent nausea, vomiting and dehydration, and poor medical compliance with insulin regimen , showing improvement after IV fluids with anion gap now normalized. 5. History of chronic pancreatitis with no evidence of pancreatitis at this time. 6. Hypertension. 7. Gastroesophageal reflux disease. 8. Depression. 9. Congestive heart failure, estimated ejection fraction of 40% by echocardiogram noted on 05/2017. 10. Systolic atrial blood clot on chronic Coumadin therapy. 11. History of melenic felt to be secondary to iron therapy currently followed by Dr. Price with colonoscopy scheduled in the coming month. 12. Iron deficiency anemia on iron replacement. PLAN: We will plan to advance the patient's diet today. She is no longer having any nausea, to clear liquids and will advance later this afternoon if tolerated to a diabetic diet. Ancipitate discharge tomorrow. Will work on catharsis again with milk of magnesia and another enema if needed. Plan to reevaluate laboratory studies in the morning as she is increasing her intake, decrease her fluids per saline lock. We will again recheck her Coumadin level in the morning as she was non therapeutic initially on admission. Until discharge, we will continue to monitor the patient closely and treat appropriately. #[id number] [facility]
[2017-07-04] MEDS ORDERED: MORPHINE SULFATE INJ 10 MG/ML VIAL IV ONE (16:39)
[2017-07-04] MEDS ORDERED: QUEtiapine FUMARATE 100 MG TAB ONE (19:59)
[2017-07-04] MEDS: diphenhydrAMINE HCL 25 MG CAP PO SCH (20:38)
[2017-07-04] MEDS ORDERED: QUEtiapine FUMARATE 100 MG TAB PO SCH (21:00)
[2017-07-04] MEDS ORDERED: INSULIN DETEMIR 100 UNITS/ML PEN SUBCU SCH (21:00)
[2017-07-05] MEDS: KCL 20 MEQ/NS 1,000 ML IVS PRN (05:45)
[2017-07-05 07:39] VITALS: BP 150/55; TEMP 97
[2017-07-05] MEDS: INSULIN LISPRO 100 UNITS/ML PEN SUBCU SCH ×2 (07:51→12:22)
[2017-07-05] MEDS: BUDESONIDE/FORMOTEROL 160/4.5 60 PUFF/6 GM INH INH SCH (08:06)
[2017-07-05] MEDS: metFORMIN HCL 500 MG TAB PO SCH (08:22)
[2017-07-05] MEDS: HYDROcodone 10MG/APAP 325MG 1 EA TAB PO PRN (08:40)
[2017-07-05] MEDS: LOSARTAN POTASSIUM 25 MG TAB PO SCH (08:41)
[2017-07-05] MEDS: CALCIUM POLYCARBOPHIL 625 MG TAB PO SCH (08:41)
[2017-07-05] MEDS: PANTOPRAZOLE SODIUM IV 40 MG VIAL IV SCH (08:42)
[2017-07-05] MEDS: FLUTICASONE PROP 0.05% NASAL 16 GM BTTL BNAS SCH (08:42)
[2017-07-05] MEDS ORDERED: ENOXAPARIN SODIUM 40 MG/0.4 ML SYG SUBCU SCH (09:00)
[2017-07-05] MEDS: PANCRELIPASE PO SCH (09:03)
[2017-07-05] MEDS: NON-FORMULARY MEDICATION 1 EA MIS (Vortioxetine Hbr [Trintellix] 10 MG) PO SCH (09:03)
[2017-07-05 10:27] VITALS: O2SAT 95
[2017-07-05] MEDS: WARFARIN SODIUM 2 MG TAB PO SCH (12:24)
--- NOTE | 2017-07-08 11:22 | DS ---
SUPERVISING PHYSICIAN: Karri Kim MD DISCHARGE DIAGNOSIS: 1. Moderate dehydration complicated by multiple comorbidities with concerns for possible viral gastroenteritis. 2. Moderate constipation as noted on radiographic studies, exacerbating nausea and vomiting secondary to chronic opioid therapy. 3. Hypomagnesemia, secondary to persistent diarrhea. 4. Type 2 diabetes mellitus initially with metabolic acidosis without any evidence of ketoacidosis, secondary to nausea, vomiting, dehydration and poor medical compliance with insulin regimen, showing improvement after IV fluids. 5. History of chronic pancreatitis. 6. Hypertension. 7. Gastroesophageal reflux disease. 8. Depression. 9. Congestive heart failure, estimated ejection fraction of 40% by echocardiogram noted on 05/2017. 10. Systolic atrial blood clot on chronic Coumadin therapy with subtherapeutic Coumadin levels on admission. 11. History of melenic stools, followed by Dr. Price, felt to be secondary to iron therapy with colonoscopy scheduled in July. 12. Iron deficiency anemia on iron replacement. HISTORY OF PRESENT ILLNESS: Ms. Mendez is a 62-year-old female patient of Dr. Soliman's with a longstanding history of multiple medical problems to include diabetes and chronic obstructive pulmonary disease. She was referred to Emergency Room by the home health nurse as the patient had been experiencing 3 days of nausea, vomiting and diarrhea. She denied any fever or any abdominal pains, but noted that she has a recurring history of chronic pancreatitis. She denied any recent changes in her medication regimen or any antibiotics in the last month. She noted that she has not been able to eat or drink very well for over 48 hours. She has not been monitoring her blood sugars very well as she is insulin dependent. Laboratory studies showed CBC with a normal white count of 5.7, hemoglobin 14, hematocrit 42.0, platelet count 169,000. Differential was within normal limits. Chemistries showed normal electrolytes with potassium 4.4, glucose 385, calcium normal, magnesium was low at 1.6. Liver functions showed a slightly elevated ALT at 81, BNP was normal at 116 as well as her pancreatic enzymes were within normal limits on admission. Urinalysis showed 500 glucose, otherwise was within normal limits. Radiographic studies completed in the Emergency Room included an abdominal x- ray and per radiology interpretation there was note of constipation. The patient was given magnesium sulfate IV in the Emergency Department and Phenergan for nausea, and started on Protonix as well as given insulin. Given her multiple co-morbidities including insulin-dependent diabetes and inability to hold any oral intake secondary to nausea complicated by diarrhea, Dr. Soliman , ER physician, requested the patient be admitted for continuation of treatment for initiation of fluids and further evaluation. There was concern that the patient, with a history of chronic pancreatitis, was in the early stages of developing acute pancreatitis. The patient was admitted in stable condition to the Medical/Surgical floor. LABORATORY: White count on admission was 5.7, at discharge was 4.5. Hemoglobin and hematocrit were stable and at discharge were 12.1 and 37.0. Platelet count 157,000. Differential was within normal limits. Coagulation studies showed a final PT of 14.3 with INR 1.27. PT-T 37.8. Chemistries on admission showed normal electrolytes with elevated anion gap of 18.4, BUN 16, creatinine 1.06, glucose initially was 385. Calcium 10.5, magnesium 1.6, ALT slightly elevated at 81. BNP was slightly elevated at 116. All other liver functions were within normal limits. Amylase and lipase were both normal. After initiation of fluids and treatment and prior to discharge, anion gap had normalized at 12.5, potassium normal at 4.5. Blood sugars were down into the 150s. Magnesium replacement resulted in magnesium normalizing to 1.9 urinalysis on admission showed 500 glucose, otherwise within normal limits. MICROBIOLOGY: No specimens submitted. RADIOLOGY: Abdominal x-ray prior to admission per radiologic interpretation showed mild constipation, no significant small bowel insertion. Please see that final report for full details. HOSPITAL COURSE: Ms. Mendez was admitted as noted in the history of present illness for concerns for developing pancreatitis due to nausea, vomiting and elevated blood sugar as well as constipation. She was started on IV fluids as well as given enema and Milk of Magnesia. She had good results from both enema and Milk of Magnesia. She had several large bowel movements. Her blood sugars were controlled with insulin and IV fluids. On the morning of discharge, the patient was no longer having any symptoms and was felt clinical stable enough to be discharged. PLAN: The patient is discharged to have close clinical followup with Dr. Soliman. She was to call his office Friday after discharge to schedule an appointment as well as to notify home health that she needed repeat of her PT and INR. She is to have close clinical followup with Dr. Mroeland as scheduled for a colonoscopy. She was take her Coumadin as directed for two days, increase to 6 mg and return after that back to [address] Soliman's directions. She was to resume all her other medications as instructed and take all new prescriptions as directed. She was told to take Milk of Magnesia daily for at least three days until she was having loose bowel movements. She was to encourage fluids to prevent dehydration and return to the hospital should she have any returns of her symptoms. At discharge, new prescriptions included: 1. Amitiza 24 mcg twice daily, #30. 2. Milk of Magnesia 30 mg daily as needed. 3. MiraLAX 17 grams daily, #30. 4. Carafate 1 gram 3 times daily and at bedtime, #30. 5. Warfarin 6 mg for 2 days, return to 4 mg as normally prescribed. Diet at discharge was diabetic. Activity to increase as tolerated. Condition on discharge was stable and improved. [facility][id number] [facility]
== END 2017-07-05 13:20 | disposition home or self-care (01) ==
LOC: ER 12:33 → INTOOBSV 14:49 → MS 14:49
PROVIDERS: ADMIT Nurse Practitioner Family; ATTEND Nurse Practitioner Family
DX: E86.0 Dehydration (principal); K86.1 Other chronic pancreatitis; K59.03 Drug induced constipation; T40.2X5A Adverse effect of other opioids, initial encounter; K59.01 Slow transit constipation; E11.65 Type 2 diabetes mellitus with hyperglycemia; E83.42 Hypomagnesemia; E87.2 Acidosis; K21.9 Gastro-esophageal reflux disease without esophagitis; F32.9 Major depressive disorder, single episode, unspecified; I11.0 Hypertensive heart disease with heart failure; I50.9 Heart failure, unspecified; D50.9 Iron deficiency anemia, unspecified; J44.9 Chronic obstructive pulmonary disease, unspecified; I51.3 Intracardiac thrombosis, not elsewhere classified; M19.90 Unspecified osteoarthritis, unspecified site; E78.5 Hyperlipidemia, unspecified; M79.7 Fibromyalgia; M81.0 Age-related osteoporosis without current pathological fracture; E03.9 Hypothyroidism, unspecified; I25.2 Old myocardial infarction; Z79.4 Long term (current) use of insulin; Z79.84 Long term (current) use of oral hypoglycemic drugs; Z79.01 Long term (current) use of anticoagulants; Z79.51 Long term (current) use of inhaled steroids; Z79.899 Other long term (current) drug therapy; Z88.1 Allergy status to other antibiotic agents; Z88.2 Allergy status to sulfonamides; Z88.8 Allergy status to other drugs, medicaments and biological substances; Z87.891 Personal history of nicotine dependence; Z95.0 Presence of cardiac pacemaker; Z90.49 Acquired absence of other specified parts of digestive tract; Z90.710 Acquired absence of both cervix and uterus; Z82.49 Family history of ischemic heart disease and other diseases of the circulatory system; Z83.3 Family history of diabetes mellitus; Z80.8 Family history of malignant neoplasm of other organs or systems
CPT/HCPCS: 36415 ×7; 36416 ×9; 74020; 80048; 80053 ×2; 81001; 82150 ×2; 82550; 82553; 82948 ×10; 83690 ×2; 83735 ×3; 83880; 84484; 85025 ×3; 85610 ×3; 85730; 94640 ×2; 94664; 94760; 96361 ×4; 96365; 96366; 96367; 96372 ×4; 96375 ×3; 96376 ×2; 99284; A4216; J1650; J1815 ×2; J2270; J2405 ×2; J2550; J3475 ×2; J3480 ×4; J7030; Q0163 ×2

== ENCOUNTER → 2017-07-07 | Outpatient (CLI) | payer MEDICARE, OTHER | END | disposition home or self-care (01) | LOC: NC 17:43 | PROVIDERS: ATTEND Family Medicine | DX: I50.22 Chronic systolic (congestive) heart failure (principal) ==

== ENCOUNTER 2017-07-14 12:08 | Emergency (ER) | payer MEDICARE, OTHER ==
[2017-07-14 12:19] VITALS: TEMP 98
--- NOTE | 2017-07-14 13:23 | RAD ---
EXAM DESCRIPTION: Hip,Right 2 Views CLINICAL HISTORY: FALL COMPARISON: September 07, 2014 IMPRESSION: 2 views of the right hip show no evidence of acute fracture, focal bone destruction, or joint dislocation. No advanced arthrosis is identified. Electronically signed by: Gerald Bess MD 07/14/2017 1:21 PM CDT
--- NOTE | 2017-07-14 13:35 | ED.PDOC ---
History of Present Illness - General Chief Complaint: Head Injury Stated Complaint: fall with loc, knee pain Time Seen by Provider: 07/14/17 12:12 Source: patient, RN notes reviewed, Vital Signs reviewed Exam Limitations: no limitations - History of Present Illness Initial Comments: Patient reports she tripped over a hose in the yard and fell forward landing on her knees, hands and face. + brief LOC. C/O bilateral knee pain, R hip pain and face pain. She has chronic pain and thus hurts all over, most of her pains are unchanged from baseline. Occurred: just prior to arrival Severity: mild Pain Location: head, face, lower extremity - R hip, B knees Method of Injury: fall Improving Factors: rest Worsening Factors: movement Loss of Consciousness: brief (seconds) Associated Symptoms (Fall): denies symptoms Allergies/Adverse Reactions: Allergies Erythromycin Allergy (Severe, Verified 04/26/16 16:25) Other severe GI issues Nicergoline [Ergot Alkaloids] Allergy (Severe, Verified 04/26/16 16:25) Sulfa Drugs Allergy (Intermediate, Verified 04/26/16 16:25) Other severe yeast infection Sitagliptin [From Januvia] Adverse Reaction (Verified 04/26/16 16:25) Home Medications: Ambulatory Orders Budesonide-Formoterol Fumarate [Symbicort 160-4.5 Mcg/Act] 1 inh IN BID Cetirizine HCl [Zyrtec Allergy] 10 mg PO DAILY PRN 02/08/16 Clonazepam [Klonopin] 1 mg PO BEDTIME 02/08/16 Fluticasone Propionate (Nasal) [Flonase Allergy Relief] 2 spray MADIE DAILY Insulin Lispro [Humalog] 100 unit SC .SLIDING SCALE 02/08/16 Ipratropium [place] Hfa [Atrovent Hfa] 2 puff INH QID PRN 02/08/16 Levalbuterol HCl [Xopenex] 1.25 mg INH QID PRN 02/08/16 Losartan Potassium [Cozaar] 50 mg PO DAILY 02/08/16 Metformin HCl 500 mg PO BIDFD 02/08/16 Nitroglycerin [Nitrostat] 0.4 mg SL Q5MIN PRN 02/08/16 Promethazine HCl [Phenergan] 25 mg NE Q6H PRN 02/08/16 Quetiapine Fumarate [Seroquel] 200 mg PO BEDTIME 02/08/16 Warfarin Sodium [Coumadin] 4 mg PO DAILY 02/08/16 cloNAZepam [Klonopin] 0.5 mg PO DAILY 02/08/16 Pancrelipase (Lipase-Protease- [Creon 77492 Unit] 2 units PO TID 06/12/16 Calcium Polycarbophil [Fiber Laxative] 625 mg PO DAILY 07/03/17 Esomeprazole Magnesium 40 mg PO DAILY 07/03/17 Guaifenesin [Mucus Relief] 400 mg PO BEDTIME 07/03/17 HYDROcodone 10MG/APAP 325MG [[place] 10] 1 tab PO PRN 07/03/17 Insulin Glargine [Toujeo Solostar] 120 unit SC BEDTIME 07/03/17 Vortioxetine HBr [Trintellix] 10 mg PO DAILY 07/03/17 diphenhydrAMINE HCL [Benadryl] 25 mg PO BEDTIME 07/03/17 Lubiprostone [Amitiza] 24 mcg PO BID #30 cap 07/05/17 Magnesium Hydroxide [Milk Of Magnesia] 30 ml PO DAILY PRN 07/05/17 Polyethylene Glycol 3350 [Miralax] 17 gm PO QDAC #30 pckt 07/05/17 Sucralfate Tab [Carafate Tab] 1 gm PO TIDHS #30 tab 07/05/17 Warfarin Sodium [Coumadin] 6 mg PO DAILY #2 tab 07/05/17 Review of Systems - Review of Systems Constitutional: States: no symptoms reported EENTM: States: no symptoms reported Respiratory: States: no symptoms reported Cardiology: States: no symptoms reported Gastrointestinal/Abdominal: States: no symptoms reported Musculoskeletal: States: see HPI, muscle pain - Chronic, neck pain - chronic, other - Bilateral knee and R hip pain Skin: States: no symptoms reported Neurological: States: no symptoms reported Endocrine: States: no symptoms reported All other Systems: No Change from Baseline Past Medical History (General) - Patient Medical History Hx Seizures: No Hx Stroke: No Hx Dementia: No Hx Asthma: No Hx of COPD: No Hx Cardiac Disorders: No Hx Congestive Heart Failure: No Hx Pacemaker: No Hx Hypertension: Yes Hx Thyroid Disease: No Hx Diabetes: Yes Hx Gastroesophageal Reflux: Yes Hx Renal Disease: No Hx Cancer: No Hx of HIV: No Hx Hepatitis C: No Hx MRSA: No MRSA Source:: Wound Surgical History: appendectomy, cholecystectomy, tonsillectomy, Hysterectomy - Vaccination History Hx Tetanus, Diphtheria Vaccination: Yes Hx Influenza Vaccination: Yes Hx Pneumococcal Vaccination: No Immunizations Up to Date: Yes - Social History Hx Tobacco Use: No Hx Chewing Tobacco Use: No Hx Alcohol Use: No Hx Substance Use: No Hx Substance Use Treatment: No Hx Depression: No Feels Threatened In Home Enviroment: No Feels Threatened In a Relationship: No Hx Physical Abuse: No Hx Emotional Abuse: No Hx Suspected Abuse: No - Female History Patient is a Female of Child Bearing Age (10 -59 yrs old): No Patient : No Family Medical History - Family History Father Family History: No Known Living Status: Age at (years of age): 69 Cause of : heart Mother Family History: No Known Living Status: Still Living Hx Family Hypertension: Yes Hx Family Diabetes: Yes Physical Exam - Physical Exam General Appearance: Alert, Comfortable, No apparent distress, Well Developed, Well Groomed, Well Hydrated, Well Nourished Head Injury: tenderness - R eyebrow - mild Eye Exam: bilateral normal ENT Exam: hearing grossly normal, no evidence of ENT injury, no dental injury Neck Exam: full range of motion, normal alignment, normal inspection Cardiovascular/Respiratory: regular rate, rhythm, no M/R/G, normal breath sounds , no respiratory distress Extremity Exam: pelvis stable, pain with movement - Right hip, tenderness - Bilateral knee caps, other - Normal gait Neurologic: no motor/sensory deficits, alert, normal mood/affect, oriented x 3 Skin Exam: normal color, warm/dry Comments: Vital Signs 07/14/17 12:16 Temperature 98 F Pulse Rate [ 92 H Left Radial] Respiratory 20 Rate Blood Pressure 156/81 [Left Arm] O2 Sat by Pulse 98 Oximetry - Antonette Coma Score Best Eye Response (Antonette): (4) open spontaneously Best Verbal Response (Antonette): (5) oriented Best Motor Response (Antonette): (6) obeys commands Antonette Total: 15 Progress - EKG/XRAY/CT XRAY: hip - Normal per Radiologist Departure - Departure Clinical Impression: Facial contusion Qualifiers: Encounter type: initial encounter Qualified Code(s): S00.83XA - Contusion of other part of head, initial encounter Hip strain Qualifiers: Encounter type: initial encounter Laterality: right Qualified Code(s): S76.011A - Strain of muscle, fascia and tendon of right hip, initial encounter Time of Disposition: 13:40 Disposition: Discharge to Home or Self Care Condition: Good Departure Forms: ED Discharge - Pt. Copy, Patient Portal Self Enrollment Instructions: DI for Contusion, DI for Knee Sprain Diet: resume usual diet Activity: increase activity as tolerated Referrals: Albert Soliman MD [Primary Care Provider] - 1-2 Weeks Home Medications: Ambulatory Orders Budesonide-Formoterol Fumarate [Symbicort 160-4.5 Mcg/Act] 1 inh IN BID Cetirizine HCl [Zyrtec Allergy] 10 mg PO DAILY PRN 02/08/16 Clonazepam [Klonopin] 1 mg PO BEDTIME 02/08/16 Fluticasone Propionate (Nasal) [Flonase Allergy Relief] 2 spray MADIE DAILY Insulin Lispro [Humalog] 100 unit SC .SLIDING SCALE 02/08/16 Ipratropium [place] Hfa [Atrovent Hfa] 2 puff INH QID PRN 02/08/16 Levalbuterol HCl [Xopenex] 1.25 mg INH QID PRN 02/08/16 Losartan Potassium [Cozaar] 50 mg PO DAILY 02/08/16 Metformin HCl 500 mg PO BIDFD 02/08/16 Nitroglycerin [Nitrostat] 0.4 mg SL Q5MIN PRN 02/08/16 Promethazine HCl [Phenergan] 25 mg NE Q6H PRN 02/08/16 Quetiapine Fumarate [Seroquel] 200 mg PO BEDTIME 02/08/16 Warfarin Sodium [Coumadin] 4 mg PO DAILY 02/08/16 cloNAZepam [Klonopin] 0.5 mg PO DAILY 02/08/16 Pancrelipase (Lipase-Protease- [Creon 37984 Unit] 2 units PO TID 06/12/16 Calcium Polycarbophil [Fiber Laxative] 625 mg PO DAILY 07/03/17 Esomeprazole Magnesium 40 mg PO DAILY 07/03/17 Guaifenesin [Mucus Relief] 400 mg PO BEDTIME 07/03/17 HYDROcodone 10MG/APAP 325MG [[place] 10/325] 1 tab PO PRN 07/03/17 Insulin Glargine [Toujeo Solostar] 120 unit SC BEDTIME 07/03/17 Vortioxetine HBr [Trintellix] 10 mg PO DAILY 07/03/17 diphenhydrAMINE HCL [Benadryl] 25 mg PO BEDTIME 07/03/17 Lubiprostone [Amitiza] 24 mcg PO BID #30 cap 07/05/17 Magnesium Hydroxide [Milk Of Magnesia] 30 ml PO DAILY PRN 07/05/17 Polyethylene Glycol 3350 [Miralax] 17 gm PO QDAC #30 pckt 07/05/17 Sucralfate Tab [Carafate Tab] 1 gm PO TIDHS #30 tab 07/05/17 Warfarin Sodium [Coumadin] 6 mg PO DAILY #2 tab 07/05/17
[2017-07-14 13:46] VITALS: BP 150/81; O2SAT 96
== END 2017-07-14 13:46 | disposition home or self-care (01) ==
LOC: ER 12:08
DX: S76.011A Strain of muscle, fascia and tendon of right hip, initial encounter (principal); S00.83XA Contusion of other part of head, initial encounter; I10 Essential (primary) hypertension; E11.9 Type 2 diabetes mellitus without complications; K21.9 Gastro-esophageal reflux disease without esophagitis; G89.29 Other chronic pain; Z88.2 Allergy status to sulfonamides; Z88.3 Allergy status to other anti-infective agents; Z88.8 Allergy status to other drugs, medicaments and biological substances; Z79.01 Long term (current) use of anticoagulants; Z79.4 Long term (current) use of insulin; Z79.899 Other long term (current) drug therapy; W18.09XA Striking against other object with subsequent fall, initial encounter; Y92.007 Garden or yard of unspecified non-institutional (private) residence as the place of occurrence of the external cause

== ENCOUNTER → 2017-07-21 | Outpatient (CLI) | payer MEDICARE, OTHER | END | disposition home or self-care (01) | LOC: NC 18:09 | PROVIDERS: ATTEND Family Medicine | DX: I50.22 Chronic systolic (congestive) heart failure (principal) ==

== ENCOUNTER → 2017-07-24 | Outpatient (CLI) | payer MEDICARE, OTHER | END | disposition home or self-care (01) | LOC: LAB.O 09:39 | PROVIDERS: ATTEND Family Medicine | DX: R19.7 Diarrhea, unspecified (principal); Z79.01 Long term (current) use of anticoagulants ==

== ENCOUNTER → 2017-07-31 | Outpatient (CLI) | payer MEDICARE, OTHER | LOC: GMAM 20:24 | PROVIDERS: ATTEND Family Medicine | DX: I50.22 Chronic systolic (congestive) heart failure (principal) ==

== ENCOUNTER → 2017-08-13 | Outpatient (CLI) | payer MEDICARE | END | disposition home or self-care (01) | LOC: NC 14:59 | PROVIDERS: ATTEND Family Medicine | DX: I11.0 Hypertensive heart disease with heart failure (principal); I50.22 Chronic systolic (congestive) heart failure ==

== ENCOUNTER → 2017-08-18 | Outpatient (CLI) | payer MEDICARE | LOC: GMAM 18:33 | PROVIDERS: ATTEND Family Medicine | DX: I50.22 Chronic systolic (congestive) heart failure (principal); I11.0 Hypertensive heart disease with heart failure ==

== ENCOUNTER → 2017-08-21 | Outpatient (CLI) | payer MEDICARE | END | disposition home or self-care (01) | LOC: NC 17:28 | PROVIDERS: ATTEND Family Medicine | DX: I50.22 Chronic systolic (congestive) heart failure (principal); I10 Essential (primary) hypertension; I25.10 Atherosclerotic heart disease of native coronary artery without angina pectoris; I42.9 Cardiomyopathy, unspecified ==

== ENCOUNTER → 2017-08-25 | Outpatient (CLI) | payer MEDICARE | END | disposition home or self-care (01) | LOC: NC 19:22 | PROVIDERS: ATTEND Family Medicine | DX: I11.0 Hypertensive heart disease with heart failure (principal); I50.22 Chronic systolic (congestive) heart failure; I25.10 Atherosclerotic heart disease of native coronary artery without angina pectoris; I42.9 Cardiomyopathy, unspecified; J44.9 Chronic obstructive pulmonary disease, unspecified ==

== ENCOUNTER → 2017-08-29 | Outpatient (CLI) | payer MEDICARE | END | disposition home or self-care (01) | LOC: NC 10:24 | PROVIDERS: ATTEND Family Medicine | DX: I11.0 Hypertensive heart disease with heart failure (principal); I50.22 Chronic systolic (congestive) heart failure; J44.9 Chronic obstructive pulmonary disease, unspecified; E11.9 Type 2 diabetes mellitus without complications; I25.10 Atherosclerotic heart disease of native coronary artery without angina pectoris ==

== ENCOUNTER → 2017-09-04 | Outpatient (CLI) | payer MEDICARE | END | disposition home or self-care (01) | LOC: NC 16:00 | PROVIDERS: ATTEND Family Medicine | DX: I25.10 Atherosclerotic heart disease of native coronary artery without angina pectoris (principal); I11.0 Hypertensive heart disease with heart failure ==

== ENCOUNTER → 2017-09-08 | Outpatient (CLI) | payer MEDICARE | END | disposition home or self-care (01) | LOC: NC 20:27 | PROVIDERS: ATTEND Family Medicine | DX: I50.22 Chronic systolic (congestive) heart failure (principal) ==

== ENCOUNTER → 2017-09-15 | Outpatient (CLI) | payer MEDICARE | END | disposition home or self-care (01) | LOC: NC 14:57 | PROVIDERS: ATTEND Family Medicine | DX: I11.0 Hypertensive heart disease with heart failure (principal); R30.0 Dysuria; I25.10 Atherosclerotic heart disease of native coronary artery without angina pectoris; I50.22 Chronic systolic (congestive) heart failure; I42.9 Cardiomyopathy, unspecified ==

== ENCOUNTER → 2017-09-16 | Outpatient (CLI) | payer MEDICARE | LOC: NC 13:11 | PROVIDERS: ATTEND Family Medicine | DX: I50.22 Chronic systolic (congestive) heart failure (principal) ==

== ENCOUNTER → 2017-09-17 | Outpatient (CLI) | payer MEDICARE, OTHER | END | disposition home or self-care (01) | LOC: NC 18:10 | PROVIDERS: ATTEND Family Medicine | DX: I50.22 Chronic systolic (congestive) heart failure (principal); I10 Essential (primary) hypertension ==

== ENCOUNTER → 2017-09-25 | Outpatient (CLI) | payer MEDICARE, OTHER | END | disposition home or self-care (01) | LOC: NC 15:01 | PROVIDERS: ATTEND Family Medicine | DX: I48.2 Chronic atrial fibrillation (principal) ==

== ENCOUNTER → 2017-09-29 | Outpatient (CLI) | payer MEDICARE, OTHER | END | disposition home or self-care (01) | LOC: NC 16:49 | PROVIDERS: ATTEND Family Medicine | DX: I48.91 Unspecified atrial fibrillation (principal) ==

== ENCOUNTER → 2017-10-09 | Outpatient (CLI) | payer MEDICARE, OTHER | END | disposition home or self-care (01) | LOC: NC 17:48 | PROVIDERS: ATTEND Family Medicine | DX: I48.1 Persistent atrial fibrillation (principal); I11.0 Hypertensive heart disease with heart failure ==

== ENCOUNTER → 2017-10-14 | Outpatient (CLI) | payer MEDICARE, OTHER | END | disposition home or self-care (01) | LOC: NC 13:19 | PROVIDERS: ATTEND Family Medicine | DX: I48.91 Unspecified atrial fibrillation (principal) ==

== ENCOUNTER → 2017-10-27 | Outpatient (CLI) | payer MEDICARE, OTHER | END | disposition home or self-care (01) | LOC: NC 16:47 | PROVIDERS: ATTEND Family Medicine | DX: I48.91 Unspecified atrial fibrillation (principal) ==

== ENCOUNTER → 2017-11-06 | Outpatient (CLI) | payer MEDICARE, OTHER | END | disposition home or self-care (01) | LOC: NC 14:34 | PROVIDERS: ATTEND Family Medicine | DX: I48.91 Unspecified atrial fibrillation (principal) ==

== ENCOUNTER → 2017-11-10 | Outpatient (CLI) | payer MEDICARE, OTHER | END | disposition home or self-care (01) | LOC: NC 12:58 | PROVIDERS: ATTEND Family Medicine | DX: I48.91 Unspecified atrial fibrillation (principal) ==

== ENCOUNTER → 2017-11-19 | Outpatient (CLI) | payer MEDICARE, OTHER | LOC: NC 19:58 | PROVIDERS: ATTEND Family Medicine | DX: I48.91 Unspecified atrial fibrillation (principal) ==

== ENCOUNTER → 2017-11-27 | Outpatient (CLI) | payer MEDICARE, OTHER | END | disposition home or self-care (01) | LOC: GMAM 12:18 | PROVIDERS: ATTEND Family Medicine | DX: I48.91 Unspecified atrial fibrillation (principal); E11.9 Type 2 diabetes mellitus without complications; I25.10 Atherosclerotic heart disease of native coronary artery without angina pectoris ==

== ENCOUNTER → 2017-12-04 | Outpatient (CLI) | payer MEDICARE, OTHER | END | disposition home or self-care (01) | LOC: NC 13:40 | PROVIDERS: ATTEND Family Medicine | DX: I48.91 Unspecified atrial fibrillation (principal) ==

== ENCOUNTER → 2017-12-05 | Outpatient (CLI) | payer MEDICARE, OTHER | END | disposition home or self-care (01) | LOC: NC 11:49 | PROVIDERS: ATTEND Family Medicine | DX: I48.91 Unspecified atrial fibrillation (principal) ==

== ENCOUNTER → 2017-12-08 | Outpatient (CLI) | payer MEDICARE, OTHER | END | disposition home or self-care (01) | LOC: NC 11:19 | PROVIDERS: ATTEND Family Medicine | DX: I48.91 Unspecified atrial fibrillation (principal) ==

== ENCOUNTER → 2017-12-11 | Outpatient (CLI) | payer MEDICARE, OTHER | END | disposition home or self-care (01) | LOC: NC 13:48 | PROVIDERS: ATTEND Family Medicine | DX: I48.91 Unspecified atrial fibrillation (principal) ==

== ENCOUNTER → 2017-12-15 | Outpatient (CLI) | payer MEDICARE, OTHER | END | disposition home or self-care (01) | LOC: NC 14:08 | PROVIDERS: ATTEND Family Medicine | DX: I48.91 Unspecified atrial fibrillation (principal) ==

== ENCOUNTER → 2017-12-24 | Outpatient (CLI) | payer MEDICARE, OTHER | LOC: NC 15:19 | PROVIDERS: ATTEND Family Medicine | DX: I50.22 Chronic systolic (congestive) heart failure (principal); I11.0 Hypertensive heart disease with heart failure; I42.9 Cardiomyopathy, unspecified ==

== ENCOUNTER → 2018-06-03 | Outpatient (CLI) | payer MEDICARE, OTHER | LOC: SOLHO 18:25 | PROVIDERS: ATTEND Family Medicine | DX: R79.1 Abnormal coagulation profile (principal) ==

== ENCOUNTER → 2018-06-04 | Outpatient (CLI) | payer OTHER | LOC: SOLHO 14:10 | PROVIDERS: ATTEND Family Medicine | DX: R79.1 Abnormal coagulation profile (principal) ==

== ENCOUNTER → 2018-06-05 | Outpatient (CLI) | payer OTHER | LOC: SOLHO 15:03 | PROVIDERS: ATTEND Family Medicine | DX: R79.1 Abnormal coagulation profile (principal) ==

== ENCOUNTER → 2018-06-08 | Outpatient (CLI) | payer OTHER | LOC: SOLHO 11:28 | PROVIDERS: ATTEND Family Medicine | DX: I50.9 Heart failure, unspecified (principal); I25.110 Atherosclerotic heart disease of native coronary artery with unstable angina pectoris; E11.65 Type 2 diabetes mellitus with hyperglycemia ==

== ENCOUNTER → 2018-06-09 | Outpatient (CLI) | payer MEDICARE, OTHER | LOC: SOLHO 14:28 | PROVIDERS: ATTEND Family Medicine | DX: N18.9 Chronic kidney disease, unspecified (principal) ==

== ENCOUNTER → 2018-06-12 | Outpatient (CLI) | payer OTHER | LOC: SOLHO 13:53 | PROVIDERS: ATTEND Family Medicine | DX: I23.6 Thrombosis of atrium, auricular appendage, and ventricle as current complications following acute myocardial infarction (principal) ==

== ENCOUNTER → 2018-06-16 | Outpatient (CLI) | payer OTHER | LOC: SOLHO 16:06 | PROVIDERS: ATTEND Family Medicine | DX: Z79.01 Long term (current) use of anticoagulants (principal) ==

== ENCOUNTER → 2018-06-22 | Outpatient (CLI) | payer OTHER | LOC: SOLHO 20:13 | PROVIDERS: ATTEND Family Medicine | DX: I23.6 Thrombosis of atrium, auricular appendage, and ventricle as current complications following acute myocardial infarction (principal); K92.2 Gastrointestinal hemorrhage, unspecified ==

== ENCOUNTER → 2018-06-22 | Outpatient (CLI) | payer OTHER | LOC: SOLHH 15:32 | PROVIDERS: ATTEND Family Medicine | DX: I23.6 Thrombosis of atrium, auricular appendage, and ventricle as current complications following acute myocardial infarction (principal); K92.2 Gastrointestinal hemorrhage, unspecified ==

== ENCOUNTER → 2018-06-24 | Outpatient (CLI) | payer OTHER | LOC: SOLHO 16:07 | PROVIDERS: ATTEND Family Medicine | DX: K92.2 Gastrointestinal hemorrhage, unspecified (principal); I23.6 Thrombosis of atrium, auricular appendage, and ventricle as current complications following acute myocardial infarction ==

== ENCOUNTER → 2018-06-25 | Outpatient (CLI) | payer OTHER | LOC: SOLHO 13:14 | PROVIDERS: ATTEND Family Medicine | DX: K92.2 Gastrointestinal hemorrhage, unspecified (principal); Z79.01 Long term (current) use of anticoagulants ==

== ENCOUNTER → 2018-06-26 | Outpatient (CLI) | payer OTHER | LOC: SOLHH 09:08 | PROVIDERS: ATTEND Family Medicine | DX: K92.2 Gastrointestinal hemorrhage, unspecified (principal) ==

== ENCOUNTER → 2018-06-29 | Outpatient (CLI) | payer MEDICARE, MEDICAID | LOC: SOLHH 14:06 | PROVIDERS: ATTEND Family Medicine | DX: K92.2 Gastrointestinal hemorrhage, unspecified (principal); Z79.01 Long term (current) use of anticoagulants ==

== ENCOUNTER → 2018-07-02 | Outpatient (CLI) | payer OTHER | LOC: SOLHO 16:42 | PROVIDERS: ATTEND Family Medicine | DX: R79.1 Abnormal coagulation profile (principal) ==

== ENCOUNTER → 2018-07-20 | Outpatient (CLI) | payer OTHER | LOC: SOLHO 13:00 | PROVIDERS: ATTEND Family Medicine | DX: Z79.01 Long term (current) use of anticoagulants (principal) ==

== ENCOUNTER → 2018-07-22 | Outpatient (CLI) | payer OTHER | LOC: SOLHO 14:40 | PROVIDERS: ATTEND Family Medicine | DX: Z79.01 Long term (current) use of anticoagulants (principal) ==

== ENCOUNTER → 2018-07-27 | Outpatient (CLI) | payer OTHER | LOC: SOLHO 14:04 | PROVIDERS: ATTEND Family Medicine | DX: R79.1 Abnormal coagulation profile (principal) ==

== ENCOUNTER → 2018-07-28 | Outpatient (CLI) | payer OTHER | LOC: SOLHH 14:47 | PROVIDERS: ATTEND Family Medicine | DX: R79.1 Abnormal coagulation profile (principal) ==

== ENCOUNTER → 2018-07-29 | Outpatient (CLI) | payer OTHER | LOC: SOLHO 15:22 | PROVIDERS: ATTEND Family Medicine | DX: R79.1 Abnormal coagulation profile (principal) ==

== ENCOUNTER → 2018-08-03 | Outpatient (CLI) | payer OTHER | LOC: LAB.NP 12:04 | PROVIDERS: ATTEND Family Medicine | DX: Z79.01 Long term (current) use of anticoagulants (principal) ==

== ENCOUNTER → 2018-08-10 | Outpatient (CLI) | payer OTHER | LOC: SOLHO 12:16 | PROVIDERS: ATTEND Family Medicine | DX: R79.1 Abnormal coagulation profile (principal) ==

== ENCOUNTER → 2018-08-18 | Outpatient (CLI) | payer OTHER | LOC: SOLHH 15:06 | PROVIDERS: ATTEND Family Medicine | DX: Z51.81 Encounter for therapeutic drug level monitoring (principal) ==

== ENCOUNTER → 2018-08-26 | Outpatient (CLI) | payer MEDICARE, MEDICAID | LOC: SOLHH 13:28 | PROVIDERS: ATTEND Family Medicine | DX: R79.1 Abnormal coagulation profile (principal) ==

== ENCOUNTER → 2018-08-31 | Outpatient (CLI) | payer MEDICARE, MEDICAID | LOC: SOLHH 12:57 | PROVIDERS: ATTEND Family Medicine | DX: Z79.01 Long term (current) use of anticoagulants (principal) ==

== ENCOUNTER → 2018-09-02 | Outpatient (CLI) | payer OTHER | LOC: SOLHO 14:13 | PROVIDERS: ATTEND Family Medicine | DX: I65.29 Occlusion and stenosis of unspecified carotid artery (principal); I50.9 Heart failure, unspecified; Z79.01 Long term (current) use of anticoagulants ==

== ENCOUNTER → 2018-09-03 | Outpatient (CLI) | payer OTHER | LOC: EDSTATUS 09:40 → SOLHH 12:48 → GMAM 12:48 | PROVIDERS: ATTEND Family Medicine | DX: I65.29 Occlusion and stenosis of unspecified carotid artery (principal); I25.110 Atherosclerotic heart disease of native coronary artery with unstable angina pectoris; I50.9 Heart failure, unspecified ==

== ENCOUNTER → 2018-09-07 | Outpatient (CLI) | payer OTHER | LOC: SOLHH 12:23 | PROVIDERS: ATTEND Family Medicine | DX: R79.1 Abnormal coagulation profile (principal) ==

== ENCOUNTER → 2018-09-15 | Outpatient (CLI) | payer OTHER | LOC: SOLHH 14:22 | PROVIDERS: ATTEND Family Medicine | DX: Z79.01 Long term (current) use of anticoagulants (principal) ==

== ENCOUNTER → 2018-09-25 | Outpatient (CLI) | payer OTHER | LOC: SOLHO 13:04 | PROVIDERS: ATTEND Family Medicine | DX: R79.1 Abnormal coagulation profile (principal) ==

== ENCOUNTER → 2018-09-28 | Outpatient (CLI) | payer OTHER | LOC: SOLHO 11:38 | PROVIDERS: ATTEND Family Medicine | DX: Z79.01 Long term (current) use of anticoagulants (principal) ==

== ENCOUNTER → 2018-10-01 | Outpatient (CLI) | payer MEDICARE | LOC: SOLHH 09:38 | PROVIDERS: ATTEND Family Medicine | DX: Z79.01 Long term (current) use of anticoagulants (principal) ==

== ENCOUNTER → 2018-10-05 | Outpatient (CLI) | payer MEDICARE | LOC: SOLHH 15:08 | PROVIDERS: ATTEND Family Medicine | DX: R79.1 Abnormal coagulation profile (principal) ==

== ENCOUNTER → 2018-10-08 | Outpatient (CLI) | payer OTHER | LOC: SOLHO 11:16 | PROVIDERS: ATTEND Family Medicine | DX: R79.1 Abnormal coagulation profile (principal) ==

== ENCOUNTER → 2018-10-12 | Outpatient (CLI) | payer OTHER | LOC: SOLHO 10:40 | PROVIDERS: ATTEND Family Medicine | DX: I50.9 Heart failure, unspecified (principal); D64.9 Anemia, unspecified; K86.1 Other chronic pancreatitis; E11.65 Type 2 diabetes mellitus with hyperglycemia ==

== ENCOUNTER → 2018-10-22 | Outpatient (CLI) | payer OTHER | LOC: SOLHH 17:33 | PROVIDERS: ATTEND Family Medicine | DX: R79.1 Abnormal coagulation profile (principal) ==

== ENCOUNTER → 2018-10-26 | Outpatient (CLI) | payer OTHER | LOC: SOLHO 13:34 | PROVIDERS: ATTEND Family Medicine | DX: Z79.01 Long term (current) use of anticoagulants (principal) ==

== ENCOUNTER → 2018-11-02 | Outpatient (CLI) | payer OTHER | LOC: SOLHO 10:38 | PROVIDERS: ATTEND Family Medicine | DX: R79.1 Abnormal coagulation profile (principal) ==

== ENCOUNTER → 2018-11-09 | Outpatient (CLI) | payer OTHER | LOC: SOLHH 13:06 | PROVIDERS: ATTEND Family Medicine | DX: Z79.01 Long term (current) use of anticoagulants (principal) ==

== ENCOUNTER → 2018-11-18 | Outpatient (CLI) | payer OTHER | LOC: SOLHH 15:51 | PROVIDERS: ATTEND Family Medicine | DX: R79.1 Abnormal coagulation profile (principal) ==

== ENCOUNTER → 2018-11-25 | Outpatient (CLI) | payer OTHER | LOC: SOLHO 12:20 | PROVIDERS: ATTEND Family Medicine | DX: Z79.01 Long term (current) use of anticoagulants (principal) ==

== ENCOUNTER → 2018-11-30 | Outpatient (CLI) | payer OTHER | LOC: SOLHO 12:39 | PROVIDERS: ATTEND Family Medicine | DX: R79.1 Abnormal coagulation profile (principal) ==

== ENCOUNTER → 2018-12-07 | Outpatient (CLI) | payer OTHER | LOC: BFHOS 12:52 | PROVIDERS: ATTEND Family Medicine | DX: Z79.01 Long term (current) use of anticoagulants (principal) ==

== ENCOUNTER → 2018-12-14 | Outpatient (CLI) | payer OTHER | LOC: SOLHO 12:19 | PROVIDERS: ATTEND Family Medicine | DX: R79.1 Abnormal coagulation profile (principal) ==

== ENCOUNTER → 2018-12-21 | Outpatient (CLI) | payer MEDICARE, OTHER | LOC: SOLHH 14:26 | PROVIDERS: ATTEND Family Medicine | DX: Z79.01 Long term (current) use of anticoagulants (principal) ==

== ENCOUNTER → 2019-01-04 | Outpatient (CLI) | payer MEDICARE, OTHER | LOC: SOLHO 16:43 | PROVIDERS: ATTEND Family Medicine | DX: I50.9 Heart failure, unspecified (principal); I25.110 Atherosclerotic heart disease of native coronary artery with unstable angina pectoris; K86.1 Other chronic pancreatitis; Z79.01 Long term (current) use of anticoagulants ==

== ENCOUNTER → 2019-01-06 | Outpatient (CLI) | payer MEDICARE | LOC: SOLHH 13:24 | PROVIDERS: ATTEND Family Medicine | DX: K86.1 Other chronic pancreatitis (principal) ==

== ENCOUNTER 2019-08-04 12:35 | Inpatient (IN) | payer MEDICARE, OTHER ==
--- NOTE | 2019-08-04 12:42 | HP ---
SUPERVISING PHYSICIAN: Karri Kim MD CHIEF COMPLAINT: Lower extremity cellulitis. HISTORY OF PRESENT ILLNESS: This is a 64-year-old female who went to her doctor's office for followup today. However, upon examination, she had some lower extremity cellulitis. She states this has been going on for about a week. He noted she also had a darkened area on the right great toe. He was concerned it might be necrotic. She lives in a facility several hours away and outpatient treatment is unreliable at this point and she was referred for admission for inpatient IV antibiotics. Therefore, she has been admitted now for that reason. At the time of admission, the patient is alert and oriented. She seems a little anxious. Her lower extremities are erythematous. She has a couple of areas that she has scratched which are scabbed over in addition to a blister on the left lower extremity. Her right great toe has an open wound on the dorsal side and on the mediolateral of the great toe, there is a darkened area which looks callused and could potentially be necrotic. Apparently, she is under hospice for her decompensated systolic heart failure. She lives at [facility] in [place]. PAST MEDICAL HISTORY: 1. Systolic heart failure with an estimated ejection fraction of 40% on last echo. She has had a pacemaker and ICD for that. 2. Hypothyroidism. 3. Hypertension. 4. Myocardial infarction. 5. Coronary artery disease. 6. Type 2 diabetes mellitus. 7. Osteoporosis. 8. Osteoarthritis. 9. Chronic obstructive pulmonary disease. 10. Migraines. 11. Depression with anxiety. 12. Iron deficiency anemia. 13. Hyperlipidemia. PAST SURGICAL HISTORY: 1. Appendectomy. 2. Cholecystectomy. 3. Thyroidectomy. 4. Hysterectomy. 5. L4 and L5 laminectomy. 6. Titanium chrystal in her right arm. 7. D&C at age 12. 8. Cardiac catheterization. MEDICATIONS: Please see med rec list once it is verified in the computer. ALLERGIES: MACROLIDE, SULFONAMIDES, JANUVIA, CAFERGOT. FAMILY HISTORY: She does not really know her family history because she is adopted. SOCIAL HISTORY: The patient is a smoker. No illicit drugs, no alcohol. REVIEW OF SYSTEMS: CONSTITUTIONAL: No fever or chills. No recent weight loss or weight gain. HEENT: No headaches, vision changes, ear pain, nasal congestion or throat pain. RESPIRATORY: No cough, hemoptysis or pleuritic chest pain. CARDIOVASCULAR: No chest pain, palpitations or peripheral edema. GASTROINTESTINAL: No nausea, vomiting, diarrhea, constipation or abdominal pain. GENITOURINARY: No dysuria, frequency or flank pain. HEMATOLOGIC: No easy bruising and no transfusion reaction. MUSCULOSKELETAL: Positive for lower extremity edema and erythema. No joint pain or muscle cramping. ENDOCRINE: No polydipsia, polyuria or polyphagia. No heat or cold intolerance. NEUROLOGIC: No syncope, paresthesias, dizziness or seizures. PHYSICAL EXAMINATION: VITAL SIGNS: Blood pressure 131/72. Heart rate 80. Respiratory rate 18. Temperature 99.6. Oxygen saturation 92%. GENERAL: Ms. Mendez is a 64-year-old female who is in no active distress currently. NEUROLOGIC: The patient is awake and oriented. LUNGS: Clear to auscultation bilaterally, although diminished. CARDIOVASCULAR: Regular rate and rhythm. Normal S1, S2. ABDOMEN: Soft. Positive bowel sounds. Obese. GENITOURINARY: Deferred. EXTREMITIES: Lower extremities with bilateral lower extremity edema with erythema, warm to the touch. There is a blister on the left lower extremity, a couple of wounds that are in the healing process that are scabbed over. The left great with an area of callus with possible underlying necrosis. ASSESSMENT: 1. Bilateral lower extremity cellulitis. 2. History of congestive heart failure with no acute exacerbation. 3. History of chronic obstructive pulmonary disease with no acute exacerbation. 4. Diabetes mellitus, type 2. 5. Depression with anxiety. PLAN: The patient will be admitted to the hospital for IV antibiotics for treatment of the cellulitis. I have spoken with Dr. Hollins who suggested arteriovenous Dopplers to check the blood flow. Additionally, we will clean the lower extremities twice today and he will evaluate the patient in the morning. We will place her on DVT prophylaxis as well as GI ulcer prophylaxis. I will resume her home medications once they are verified in the computer as well. [facility][id number] [facility]
[2019-08-04] MEDS ORDERED: SODIUM CHLORIDE 0.9% (FLUSH) 10 ML SYG IV PRN (12:53)
[2019-08-04] MEDS ORDERED: ENOXAPARIN SODIUM 40 MG/0.4 ML SYG SUBCU SCH (13:00)
[2019-08-04] MEDS ORDERED: ceFAZolin SODIUM 1 GM VIAL IM SCH (13:00)
[2019-08-04] MEDS ORDERED: ceFAZolin SODIUM 1 GM in SODIUM CHL 0.9% 50ML MIN-BAG+ 50 ML IVPB SCH (13:00)
--- NOTE | 2019-08-04 14:13 | RAD ---
EXAM DESCRIPTION: Chest,1 View CLINICAL HISTORY: 64 years Female, CHF/COPD COMPARISON: January 21, 2017 Findings: Cardiomegaly. Pulmonary vascular congestion. Stable pacemaker. No large pleural effusion. No focal consolidation. No pneumothorax. Atherosclerotic plaque in the thoracic aorta. No acute osseous abnormality. IMPRESSION: CHF/volume overload. Electronically signed by: Chuckie Lopez MD 08/04/2019 2:11 PM CDT
[2019-08-04] MEDS ORDERED: SODIUM CHL 0.9% 50ML MIN-BAG+ 50 ML IVPB ONE (14:20)
[2019-08-04] MEDS ORDERED: ceFAZolin SODIUM 1 GM VIAL ONE (14:21)
[2019-08-04] MEDS: NICOTINE PATCH 21 MG TD SCH (14:55)
[2019-08-04] MEDS ORDERED: HYDROmorphone HCL 2 MG TAB PO PRN ×3 (15:34→15:42)
[2019-08-04] MEDS ORDERED: HYDROmorphone HCL 2 MG TAB ONE (15:37)
[2019-08-04] MEDS: IPRATROPIUM/ALBUTEROL 3 ML VIAL NEB SCH ×2 (15:50→19:58)
[2019-08-04] MEDS ORDERED: SODIUM CHLORIDE 0.9% 1000ML 1,000 ML ONE (16:11)
[2019-08-04] MEDS ORDERED: SODIUM CHLORIDE 0.9% IVS PRN (16:17)
[2019-08-04] MEDS ORDERED: VANCOMYCIN PER PHARMACY IVPB SCH (16:30)
--- NOTE | 2019-08-04 16:41 | US ---
EXAM DESCRIPTION: Extremity,Lower [place]ava[place] Arteries CLINICAL HISTORY: 64 years Female, cellulitis with area of necrosis COMPARISON: None. TECHNIQUE: 2-D color flow and Doppler sonography FINDINGS: Right: Grayscale imaging demonstrates mild atherosclerotic plaque. Waveforms are multiphasic throughout Peak systolic velocities (cm/sec) are as follows: DESIGNER/WRITER: 172.9 Proximal SFA: 175.5 Mid SFA: 135.5 Distal SFA: 145.2 Popliteal: 123.5 ZEUS: Not imaged GUM WORKER: 129.1 Dorsalis pedis: 58.2 Left: Grayscale imaging demonstrates mild atherosclerotic plaque waveforms are multiphasic throughout Peak systolic velocities (cm/sec) are as follows: DESIGNER/WRITER: 167.6 Proximal SFA: 174.3 Mid SFA: 156.5 Distal SFA: 158.6 Popliteal: 176.2 ZEUS: Not imaged GUM WORKER: 158.8 Dorsalis pedis: 54.2 IMPRESSION: No hemodynamically significant stenosis. Electronically signed by: Lazaro Reyes MD 08/04/2019 4:39 PM CDT
[2019-08-04] MEDS ORDERED: guaiFENesin/DEXTROMETH SYRUP 5 ML UD PO PRN (16:53)
[2019-08-04] MEDS ORDERED: HYDROmorphone HCL INJ 2 MG/ML VIAL IV PRN (16:56)
--- NOTE | 2019-08-04 17:14 | US ---
EXAM DESCRIPTION: Venous,Lower Extremity RT CLINICAL HISTORY: cellulitis with area of necrosis COMPARISON: None Available. TECHNIQUE: Right lower extremity venous duplex FINDINGS: There is no DVT identified. There is normal color flow observed with good flow augmentation. All deep veins compress normally. IMPRESSION: Negative for DVT Electronically signed by: Lazaro Reyes MD 08/04/2019 5:09 PM CDT
--- NOTE | 2019-08-04 17:14 | US ---
EXAM DESCRIPTION: Venous,Lower Extremity LT CLINICAL HISTORY: cellulitis with area of necrosis COMPARISON: None Available. TECHNIQUE: Left lower extremity venous duplex FINDINGS: There is no DVT identified. There is normal color flow observed with good flow augmentation. All deep veins compress normally. IMPRESSION: Negative for DVT Electronically signed by: Lazaro Reyes MD 08/04/2019 5:09 PM CDT
[2019-08-04] MEDS ORDERED: PIPERACILLIN/TAZOBACTAM 3.375 GM VIAL IVPB ONE (17:27)
[2019-08-04] MEDS ORDERED: SODIUM CHL 0.9% 100ML MINI-BAG 100 ML IVPB ONE (17:28)
[2019-08-04] MEDS ORDERED: VANCOMYCIN HCL INJ 1,000 MG VIAL IVPB ONE (17:32)
[2019-08-04] MEDS ORDERED: SODIUM CHLORIDE 0.9% 250ML 250 ML ONE (17:32)
[2019-08-04] MEDS ORDERED: VANCOMYCIN HCL INJ 500 MG VIAL ONE (17:32)
[2019-08-04] MEDS: PIPERACILLIN/TAZOBACTAM 3.375 GM in SODIUM CHLORIDE 0.9% 100ML 100 ML IVPB SCH (17:40)
[2019-08-04] MEDS ORDERED: VANCOMYCIN HCL INJ 1,000 MG, VANCOMYCIN HCL INJ 250 MG in SODIUM CHLORIDE 0.9% 250ML 25... IVPB ONE (18:00)
[2019-08-04] MEDS ORDERED: SODIUM CHLORIDE 0.9% 500ML 500 ML ONE (18:47)
[2019-08-04] MEDS: METOCLOPRAMIDE HCL 5 MG TAB PO SCH ×2 (19:18→21:05)
[2019-08-04] MEDS: metFORMIN HCL 500 MG TAB PO SCH (19:18)
[2019-08-04] MEDS ORDERED: ACETAMINOPHEN SUPPOSITORY 650 MG PR PRN (19:53)
--- NOTE | 2019-08-04 20:15 | OP ---
DATE OF PROCEDURE: 08/04/19 SUPERVISING PHYSICIAN: Karri Kim M.D. PROCEDURE: Right femoral central line placement. INDICATION: Sepsis. ESTIMATED BLOOD LOSS: Less than 10 mL. COMPLICATIONS: None. PROCEDURE: The patient was prepped and draped in the sterile manner. This was done on an emergent basis due to the development of altered mental status and the development of sepsis. The right femoral artery was palpated without difficulties. The right femoral vein was accessed using Seldinger technique approximately 1 cm medial to the artery pulsation. Dark red blood was aspirated. The guide wire was advanced through the Seldinger needle and the needle was removed. A small incision was made at the incision site. A dilator was then used to create a tract in the skin. The dilator was removed and subsequently a triple lumen device was advanced over the guide wire. The guide wire was then removed. Venous flow was aspirated from all 3 ports. Each port was then flushed with 10 mL of sterile saline. The device was secured with #3-0 silk sutures time 2. Sterile dressing was then applied. The patient tolerated the procedure well. #[id number] [facility]
--- NOTE | 2019-08-04 20:24 | RAD ---
EXAM DESCRIPTION: Chest,1 View CLINICAL HISTORY: 64 years Female, picc placement COMPARISON: Chest x-ray August 04, 2019 1:27 PM FINDINGS: Implanted cardiac device with leads is again noted. A right upper extremity PICC line is present with tip difficult to visualize, possibly at the cavoatrial junction. Ill-defined perihilar opacities are demonstrated. There is mild prominence of pulmonary interstitial markings. There is blunting of the left costophrenic angle suggestive of a small left pleural effusion. Opacity in the left lower lung zone is present. No pneumothorax. Cardiac silhouette appears borderline enlarged. Pulmonary vascular congestion is present. Osseous structures are unchanged. IMPRESSION: 1. Right upper extremity PICC line tip difficult to visualize, possibly at the cavoatrial junction. Follow-up oblique radiograph may be helpful for further evaluation. 2. Perihilar opacities and interstitial septal thickening suggestive of pulmonary edema. 3. Opacity in the left lower lung zone may represent atelectasis or infiltrate. 4. Possible small left pleural effusion. Electronically signed by: Inder Miller MD 08/04/2019 8:22 PM CDT
--- NOTE | 2019-08-04 20:31 | PN ---
DATE: 08/04/19 AT 4:10 PM SUBJECTIVE: I was called to the bedside due to the patient having altered mental status and development of fever of 102.9. Upon my arrival she was not making any sense but purposeful. Nurses were at bedside. She had already gotten Cephazolin that was ordered earlier. Due to the likelihood of development of sepsis a 30 mL per kg bolus was ordered which was 2,550 mL of normal saline. I also ordered vancomycin and changed the antibiotic to Zosyn from [facility]. I have added blood cultures, lactic acid as well as a urinalysis with urine culture as well. An emergent central line was placed due to her lack of IV access for administration of critical fluids as well as antibiotics. OBJECTIVE: VITAL SIGNS: Blood pressure 136/60, heart rate 110, respiratory rate 24, temperature 102.9, oxygen saturation 92%. GENERAL: Ms. Mendez is a 64 year-old female who is acutely ill in appearance. NEUROLOGIC: The patient is not alert but speaking nonsense and only intermittently following commands. LUNGS: Clear to auscultation bilaterally. CARDIOVASCULAR: Regular rate and rhythm. Normal S1 and S2. ABDOMEN: Soft, obese. Positive bowel sounds. EXTREMITIES: Lower extremities with 1+ pitting edema. She has erythema and cellulitis. Capillary refill is less than 2 seconds. SKIN: She has good skin turgor. Skin is warm to the touch. LABORATORY: Labs are still pending. ASSESSMENT: 1. Severe sepsis secondary to cellulitis and possibly another source. 2. History of congestive heart failure without exacerbation although on her chest x-ray shows congestive heart failure. 3. Chronic obstructive pulmonary disease with no acute exacerbation. 4. Diabetes mellitus type 2. 5. Depression with anxiety. 6. Altered mental status which appears probably to be secondary to her temperature spike. PLAN: As stated above I have ordered a fluid bolus. Will need to be cautious with this, however, given the fact that she does have a history of cardiomyopathy. I have changed her antibiotic and ordered lactate and blood cultures. I discussed with Dr. Kim as well as Dr. Soliman regarding the patient's change in status. Critical care time is approximately 40 minutes spent in evaluation and management of the patient, coordination with the nursing staff, chart review, will call order clerk as well as documentation. This critical care time is exclusive of procedural time. #[id number] [facility]
[2019-08-04] MEDS ORDERED: HYDROMORPHONE HCL PO SCH (21:00)
[2019-08-04] MEDS ORDERED: INSULIN DETEMIR 100 UNITS/ML PEN SUBCU SCH (21:00)
[2019-08-04] MEDS ORDERED: NON-FORMULARY MEDICATION 1 EA MIS (Melatonin [Melatonin] 10 MG) PO SCH (21:00)
[2019-08-04] MEDS: FUROSEMIDE 40 MG TAB PO SCH (21:04)
[2019-08-04] MEDS: HYDROXYCHLOROQUINE SULFATE PO SCH (21:04)
[2019-08-04] MEDS: GABAPENTIN 400 MG CAP PO SCH (21:04)
[2019-08-04] MEDS: GUAIFENESIN 400 MG PO SCH (21:04)
[2019-08-04] MEDS: [UNRECOGNIZED DRUG - OTHER] PO SCH (21:05)
[2019-08-04] MEDS: QUEtiapine FUMARATE 100 MG TAB PO SCH (21:05)
[2019-08-04] MEDS: NON-FORMULARY MEDICATION 1 EA MIS (Probiotic Product [Probiotic] 1 TAB) PO SCH (21:05)
[2019-08-04] MEDS: IV SET AND CAP CHANGE INJ INJ SCH (21:08)
[2019-08-05] MEDS ORDERED: PIPERACILLIN/TAZOBACTAM 3.375 GM VIAL IVPB ONE ×3 (00:19→16:32)
[2019-08-05] MEDS ORDERED: SODIUM CHLORIDE 0.9% 100ML 100 ML IVPB ONE ×3 (00:19→16:32)
[2019-08-05] MEDS: PIPERACILLIN/TAZOBACTAM 3.375 GM in SODIUM CHLORIDE 0.9% 100ML 100 ML IVPB SCH ×3 (00:29→16:51)
[2019-08-05] MEDS: metFORMIN HCL 500 MG TAB PO SCH ×2 (07:16→16:52)
[2019-08-05] MEDS: IPRATROPIUM/ALBUTEROL 3 ML VIAL NEB SCH ×6 (08:24→21:09)
[2019-08-05] MEDS: GUAIFENESIN 400 MG PO SCH (08:55)
[2019-08-05] MEDS: NON-FORMULARY MEDICATION 1 EA MIS (Probiotic Product [Probiotic] 1 TAB) PO SCH (08:56)
[2019-08-05] MEDS: [UNRECOGNIZED DRUG - OTHER] PO SCH (08:56)
[2019-08-05] MEDS: HYDROXYCHLOROQUINE SULFATE PO SCH ×2 (08:56→20:48)
[2019-08-05] MEDS: NICOTINE PATCH 21 MG TD SCH (08:58)
[2019-08-05] MEDS: GABAPENTIN 400 MG CAP PO SCH ×2 (08:59→20:50)
[2019-08-05] MEDS: CITALOPRAM HBR 20 MG TAB PO SCH (08:59)
[2019-08-05] MEDS ORDERED: APIXABAN 5 MG TAB PO SCH (09:00)
[2019-08-05] MEDS ORDERED: HYDROmorphone HCL 2 MG TAB PO SCH (09:00)
[2019-08-05] MEDS: FERROUS SULFATE 325 MG TAB PO SCH (09:00)
[2019-08-05] MEDS: METOCLOPRAMIDE HCL 5 MG TAB PO SCH ×4 (09:01→20:50)
[2019-08-05] MEDS: LOSARTAN POTASSIUM 25 MG TAB PO SCH (09:02)
[2019-08-05] MEDS: lamoTRIgine 25 MG TAB PO SCH (09:02)
[2019-08-05] MEDS: SPIRONOLACTONE 25 MG TAB PO SCH (09:02)
[2019-08-05] MEDS: FUROSEMIDE 40 MG TAB PO SCH ×2 (09:03→16:30)
[2019-08-05] MEDS: BIFIDOBACTERIUM INFANTIS 4 MG CAP PO SCH ×2 (09:12→20:47)
[2019-08-05] MEDS: HYDROMORPHONE PO SCH ×2 (10:05→20:50)
[2019-08-05] MEDS ORDERED: CHLORHEXIDINE GLUCONATE 4 % 15 ML UD TOP ONE (10:06)
[2019-08-05] MEDS: CHLORHEXIDINE GLUC 4% 15ML 45 ML, WATER FOR IRRIGATION 1,000 ML TOP SCH ×4 (11:09→20:58)
--- NOTE | 2019-08-05 11:38 | PN ---
SUPERVISING PHYSICIAN: Karri Kim MD DATE: 08/05/19 SUBJECTIVE: The patient is lying in bed. She is somewhat lethargic. Her mother is at the bedside. She does answer questions appropriately. She feels better than yesterday, but still very, very weak. I have encouraged her to ask for her pain medications as she said her left lower extremity is painful. OBJECTIVE: VITAL SIGNS: Temperature 98.7. Heart rate 80. Blood pressure 145/75. Respiratory rate 18. O2 saturation 94% on 2 liters. RESPIRATORY: Diminished at the bases. Otherwise, a few scattered crackles. CARDIAC: Regular rate and rhythm. GASTROINTESTINAL: Abdomen is soft, nondistended, nontender. Bowel sounds are positive. NEUROLOGIC: Awake, but somewhat lethargic. She is oriented times three. LABORATORY: WBCs have gone up to 19,700 with hemoglobin 9.8 and hematocrit 29.8. She has a left shift on differential. Sodium 133, BUN 23, glucose 115, calcium 8.2. TSH 0.72, free T4 0.66. Urine culture is pending. Preliminary blood cultures are negative to date. Chest x-ray shows 1) Right upper extremity PICC line tip difficult to visualize, possibly at the cavoatrial junction. Followup oblique radiograph may be helpful for further evaluation. 2) Perihilar opacities and interstitial septal thickening suggestive of pulmonary edema. 3) Opacity in the left lower lung zone may represent atelectasis or infiltrate. 4) Possible small left pleural effusion. All other labs and films have been reviewed via the EMR. ASSESSMENT: 1. Severe sepsis secondary to cellulitis and most likely left lower lobe pneumonia. 2. History of congestive heart failure without exacerbation although her chest shows shows increased congestion. 3. Chronic obstructive pulmonary disease with no acute exacerbation although this may be complicated by possible left lower lobe pneumonia. 4. Left lower lobe pneumonia, most likely hospital acquired as the patient lives in an assisted living facility. 5. Diabetes mellitus, type 2. 6. Depression with anxiety. 7. Altered mental status, improved with fluids and treatment. PLAN: We will continue present supportive care. We will continue to monitor her cultures as presently she is on Zosyn and vancomycin. If she continues to clinically improve, we can continue on those. Otherwise, we may consider adding an antibiotic for healthcare acquired pneumonia. I will repeat her lab and chest x-ray in the morning. We will continue to monitor the patient closely and follow as needed. #[id number] [facility]
[2019-08-05] MEDS: [UNRECOGNIZED DRUG - OTHER] PO SCH ×2 (12:30→16:52)
--- NOTE | 2019-08-05 13:24 | CONS ---
DATE OF CONSULTATION: 08/05/19 HISTORY OF PRESENT ILLNESS: The patient is a 64-year-old female hospice patient secondary to systolic heart failure. She was admitted for erythema of her left foot worked up yesterday. During the afternoon yesterday, she developed tachycardia and hypotension. She was resuscitated and started on IV vancomycin. She is much improved this morning from a symptomatic point of view. She denies pain. She does say she has a somewhat productive cough, but this is unchanged from her normal situation. She denies injury to the great toe, however, states she does get calluses from her shoes. She does feel her feet, but does have pain and stinging. PAST MEDICAL HISTORY: 1. Systolic heart failure. 2. Hypothyroidism. 3. Hypertension. 4. Myocardial infarction. 5. Coronary artery disease 6. Type 2 diabetes. 7. Osteoporosis 8. Osteoarthritis. 9. Chronic obstructive pulmonary disease. 10. Migraines. 11. Depression. 12. Iron deficiency anemia. 13. Hyperlipidemia. 14. Chronic tobacco abuse. PAST SURGICAL HISTORY: 1. Appendectomy. 2. Cholecystectomy. 3. Thyroidectomy. 4. Hysterectomy. 5. Laminectomy at L4-L5. 6. Titanium chrystal insertion in the right arm. 7. D&C at age 12. 8. Cardiac catheterization. 9. She is the mother of children. MEDICATIONS: As noted in the chart. ALLERGIES: MACROLIDES, SULFONAMIDES, JANUVIA, CAFERGOT. FAMILY HISTORY: The patient is adopted. SOCIAL HISTORY: The patient denies drug use or alcohol use. She continues to smoke and has since a young age. REVIEW OF SYSTEMS: GENERAL: There were no fever or chills prior to admission. HEENT: No problems with headaches. RESPIRATORY: There has been a cough without hemoptysis. There has been some production with cough, but this is her normal smoker's cough. CARDIAC: She denies chest pain. GASTROINTESTINAL: No nausea, vomiting, diarrhea or abdominal pain. GENITOURINARY: No urinary symptoms. MUSCULOSKELETAL: Her legs have chronic bilateral edema. PHYSICAL EXAMINATION: VITAL SIGNS: The patient is currently afebrile, normotensive. HEENT: Sclerae nonicteric. Mucous membranes moist. NECK: Without adenopathy. ABDOMEN: Soft and benign. EXTREMITIES: Bilateral lower extremities show no erythema and only trace edema. She has multiple excoriated areas on her legs, ankles and feet. She has multiple calluses, the one on her great toe is quite large. There is a little bit of bloody drainage from underneath it, but no fluctuance. There is no erythema. There is no significant tenderness currently. LABORATORY: Potassium down from 5.5 to 4.6. Creatinine is down from 1.4 to 1.17. Blood sugar 115. Lactic acid this morning is 1.3. It was 2.4 yesterday afternoon. White blood cell count is up to 19.7 from 14.8. Hemoglobin is down from 10.7 to 9.8. Platelet count is from 221 to 156. Neutrophils were 89 yesterday and they are 86 today. Cultures are all pending or no growth at this point. Chest x-ray today reveals possible infiltrate versus atelectasis in the left lower lobe. ASSESSMENT: 1. Leukocytosis, likely associated with her left foot, but her left foot appears to be improved since. PLAN: We will continue the current antibiotic therapy and local care. We will reevaluate tomorrow and pending the culture results. #[id number] [facility]
[2019-08-05] MEDS ORDERED: VANCOMYCIN HCL INJ 500 MG VIAL ONE ×2 (17:13)
[2019-08-05] MEDS ORDERED: VANCOMYCIN HCL INJ 1,000 MG VIAL IVPB ONE (17:13)
[2019-08-05] MEDS ORDERED: SODIUM CHLORIDE 0.9% 250ML 250 ML ONE (17:13)
[2019-08-05] MEDS: VANCOMYCIN HCL INJ 1,000 MG, VANCOMYCIN HCL INJ 500 MG in SODIUM CHLORIDE 0.9% 250ML 25... IVPB SCH (17:30)
[2019-08-05] MEDS: APIXABAN 5 MG TAB PO SCH (20:48)
[2019-08-05] MEDS: MELATONIN 3 MG TAB PO SCH (20:49)
[2019-08-05] MEDS: guaiFENesin ER TAB 600 MG TAB PO SCH (20:49)
[2019-08-05] MEDS: QUEtiapine FUMARATE 100 MG TAB PO SCH (20:55)
[2019-08-06] MEDS: PIPERACILLIN/TAZOBACTAM 3.375 GM in SODIUM CHLORIDE 0.9% 100ML 100 ML IVPB SCH ×3 (01:12→17:01)
[2019-08-06] MEDS ORDERED: SODIUM CHLORIDE 0.9% 100ML 100 ML IVPB ONE ×4 (03:09→19:28)
[2019-08-06] MEDS ORDERED: PIPERACILLIN/TAZOBACTAM 3.375 GM VIAL IVPB ONE ×4 (03:09→19:27)
--- NOTE | 2019-08-06 06:35 | RAD ---
EXAM: XR Chest, 1 View CLINICAL HISTORY: The patient is 64 years old and is Female; pna TECHNIQUE: Frontal view of the chest. COMPARISON: Chest radiograph August 04, 2019. FINDINGS: LUNGS: Interval improvement in the interstitial opacities is noted. PLEURAL SPACE: Unremarkable. No pneumothorax. HEART: The cardiac silhouette is unchanged. MEDIASTINUM: Unremarkable. BONES/JOINTS: Postsurgical change of the right humerus is present. VASCULATURE: TUBES, LINES AND DEVICES: Triple lead left-sided pacemaker is present. Right upper extremity PICC tip is stable. IMPRESSION: Interval improvement in vascular congestion and left lower lobe opacity. Electronically signed by: Bernie Morales MD 08/06/2019 6:33 AM CDT
[2019-08-06] MEDS: [UNRECOGNIZED DRUG - OTHER] PO SCH ×3 (07:22→17:04)
[2019-08-06] MEDS: metFORMIN HCL 500 MG TAB PO SCH ×2 (07:22→17:02)
[2019-08-06] MEDS: IPRATROPIUM/ALBUTEROL 3 ML VIAL NEB SCH ×5 (08:20→19:52)
[2019-08-06] MEDS: METOCLOPRAMIDE HCL 5 MG TAB PO SCH ×4 (08:47→20:38)
[2019-08-06] MEDS: lamoTRIgine 25 MG TAB PO SCH (08:47)
[2019-08-06] MEDS: APIXABAN 5 MG TAB PO SCH ×2 (08:47→20:35)
[2019-08-06] MEDS: FERROUS SULFATE 325 MG TAB PO SCH (08:47)
[2019-08-06] MEDS: CITALOPRAM HBR 20 MG TAB PO SCH (08:47)
[2019-08-06] MEDS: LOSARTAN POTASSIUM 25 MG TAB PO SCH (08:47)
[2019-08-06] MEDS: GABAPENTIN 400 MG CAP PO SCH ×2 (08:47→20:37)
[2019-08-06] MEDS: FUROSEMIDE 40 MG TAB PO SCH ×2 (08:47→17:02)
[2019-08-06] MEDS: BIFIDOBACTERIUM INFANTIS 4 MG CAP PO SCH ×2 (08:47→20:35)
[2019-08-06] MEDS: guaiFENesin ER TAB 600 MG TAB PO SCH ×2 (08:47→20:37)
[2019-08-06] MEDS: HYDROMORPHONE PO SCH ×2 (08:48→20:38)
[2019-08-06] MEDS: SPIRONOLACTONE 25 MG TAB PO SCH (08:48)
[2019-08-06] MEDS: HYDROXYCHLOROQUINE SULFATE PO SCH ×2 (08:48→20:36)
[2019-08-06] MEDS: NICOTINE PATCH 21 MG TD SCH (08:48)
[2019-08-06] MEDS: CHLORHEXIDINE GLUC 4% 15ML 45 ML, WATER FOR IRRIGATION 1,000 ML TOP SCH ×4 (08:49→20:43)
[2019-08-06] MEDS ORDERED: CHLORHEXIDINE GLUCONATE 4 % 15 ML UD TOP ONE (09:30)
[2019-08-06] MEDS: ALBUTEROL SULFATE 2.5 MG/3 ML VIAL NEB PRN ×2 (13:00→16:55)
[2019-08-06] MEDS ORDERED: VANCOMYCIN HCL INJ 500 MG VIAL ONE (16:41)
[2019-08-06] MEDS ORDERED: SODIUM CHLORIDE 0.9% 250ML 250 ML ONE (16:41)
[2019-08-06] MEDS ORDERED: VANCOMYCIN HCL INJ 1,000 MG VIAL IVPB ONE (16:42)
[2019-08-06] MEDS: VANCOMYCIN HCL INJ 1,000 MG, VANCOMYCIN HCL INJ 500 MG in SODIUM CHLORIDE 0.9% 250ML 25... IVPB SCH ×2 (17:44→18:01)
--- NOTE | 2019-08-06 17:52 | PN ---
DATE: 08/06/19 SUPERVISING PHYSICIAN: Karri Kim M.D. SUBJECTIVE: The patient is sitting up in bed. Mother is at her bedside. She is much more alert today. She said she feels much improved. She denies any chest pain, shortness of breath, nausea or vomiting. OBJECTIVE: VITAL SIGNS: Temperature 98.1, heart rate 77, blood pressure 143/76, respiratory rate 18, O2 sat 96% on 2 liters nasal cannula. RESPIRATORY: Diminished at the bases with a few scattered crackles but very mild. CARDIAC: Regular rate and rhythm. GASTROINTESTINAL: Abdomen is soft, nondistended, non-tender. Bowel sounds are positive. EXTREMITIES: No clubbing, cyanosis or edema. She does have the left great toe that continues to be black on the tip as well as the medial aspect of the toe. The other portions of the toe are pink. There is no drainage noted. No fluctuance noted. I has improved from previous exam. NEUROLOGIC: She is awake, alert and oriented times three. LABORATORY: WBCs have normalized to 10.3 with hemoglobin 10.1, hematocrit 30.5. She still has a left shift on her differential. Electrolytes are basically within normal limits with the exception of her BUN is 21. Urine culture is pending. Preliminary blood cultures show no growth after 24 hours. Chest x-ray shows interval improvement of vascular congestion and left lower lobe opacity. All other labs and films have been reviewed via the EMR. ASSESSMENT: 1. Severe sepsis secondary to cellulitis and most likely left lower lobe pneumonia. 2. History of congestive heart failure without exacerbation although her chest x-ray showed some increased congestion. 3. Chronic obstructive pulmonary disease without exacerbation although her COPD may be complicated by her left lower lobe pneumonia. 4. Left lower lobe pneumonia, most likely hospital acquired as the patient lives in an assisted living center. 5. Diabetes mellitus, type 2. 6. Depression with anxiety. 7. Altered mental status, improved with fluids and treatment. PLAN: We will continue present supportive care. I will have the nurses pull her central line. I discussed her plan of care with her primary care physician, Dr. Soliman. She is presently on Zosyn and vancomycin. We will continue with 2 additional days of IV antibiotic therapy and as long as she continues to progress, she may be able to go home on Friday. Will need to call Dr. Wallace at that time to see her recommendations on antibiotic coverage. I have ordered routine lab for in the morning. Will hold on a chest x-ray for now. Will continue to monitor closely and follow as needed. #[id number] [facility]
[2019-08-06] MEDS: MELATONIN 3 MG TAB PO SCH (20:37)
[2019-08-06] MEDS: QUEtiapine FUMARATE 100 MG TAB PO SCH (20:40)
[2019-08-07] MEDS: PIPERACILLIN/TAZOBACTAM 3.375 GM in SODIUM CHLORIDE 0.9% 100ML 100 ML IVPB SCH ×3 (01:29→16:40)
[2019-08-07] MEDS: [UNRECOGNIZED DRUG - OTHER] PO SCH ×3 (07:24→16:40)
[2019-08-07] MEDS: metFORMIN HCL 500 MG TAB PO SCH ×2 (07:24→16:40)
[2019-08-07] MEDS ORDERED: SODIUM CHLORIDE 0.9% 100ML 100 ML IVPB ONE ×3 (08:23→18:54)
[2019-08-07] MEDS ORDERED: PIPERACILLIN/TAZOBACTAM 3.375 GM VIAL IVPB ONE ×3 (08:23→18:54)
[2019-08-07] MEDS: IPRATROPIUM/ALBUTEROL 3 ML VIAL NEB SCH ×3 (08:39→19:53)
[2019-08-07] MEDS: BIFIDOBACTERIUM INFANTIS 4 MG CAP PO SCH ×2 (09:02→20:34)
[2019-08-07] MEDS: CITALOPRAM HBR 20 MG TAB PO SCH (09:02)
[2019-08-07] MEDS: lamoTRIgine 25 MG TAB PO SCH (09:02)
[2019-08-07] MEDS: FERROUS SULFATE 325 MG TAB PO SCH (09:03)
[2019-08-07] MEDS: HYDROXYCHLOROQUINE SULFATE PO SCH ×2 (09:03→20:35)
[2019-08-07] MEDS: HYDROMORPHONE PO SCH ×2 (09:03→20:37)
[2019-08-07] MEDS: SPIRONOLACTONE 25 MG TAB PO SCH (09:03)
[2019-08-07] MEDS: GABAPENTIN 400 MG CAP PO SCH ×2 (09:03→20:37)
[2019-08-07] MEDS: guaiFENesin ER TAB 600 MG TAB PO SCH ×2 (09:03→20:36)
[2019-08-07] MEDS: APIXABAN 5 MG TAB PO SCH ×2 (09:03→20:35)
[2019-08-07] MEDS: FUROSEMIDE 40 MG TAB PO SCH ×2 (09:03→16:40)
[2019-08-07] MEDS: METOCLOPRAMIDE HCL 5 MG TAB PO SCH ×4 (09:03→20:38)
[2019-08-07] MEDS: LOSARTAN POTASSIUM 25 MG TAB PO SCH (09:03)
[2019-08-07] MEDS: CHLORHEXIDINE GLUC 4% 15ML 45 ML, WATER FOR IRRIGATION 1,000 ML TOP SCH ×4 (09:04→20:40)
[2019-08-07] MEDS: NICOTINE PATCH 21 MG TD SCH (09:04)
[2019-08-07] MEDS ORDERED: GLUCAGON INJ 1 MG VIAL SUBCU PRN (13:26)
[2019-08-07] MEDS ORDERED: DEXTROSE 50% 25 GM/50 ML SYG IV PRN (13:26)
[2019-08-07] MEDS: IV SET AND CAP CHANGE INJ INJ SCH (13:48)
--- NOTE | 2019-08-07 16:24 | PN ---
DATE: 08/07/19 SUPERVISING PHYSICIAN: Karri Kim M.D. SUBJECTIVE: The patient is sitting up on the side of her bed. She continues to feel better. She denies any shortness of breath, chest pain, nausea, vomiting or constipation. She does still have some pain in that left great toe but that has also improved. We discussed the possibility of Swing Bed for IV antibiotic therapy and she agreed to that plan. OBJECTIVE: VITAL SIGNS: Temperature 98.1, heart rate 74, blood pressure 125/78, respiratory rate 20, O2 sat 94% on 2 liters nasal cannula. RESPIRATORY: Somewhat diminished throughout but otherwise clear to auscultation. CARDIAC: Regular rate and rhythm. GASTROINTESTINAL: Abdomen is soft, nondistended, non-tender. Bowel sounds are positive. EXTREMITIES: There has been minimal change to that left great toe, although it has improved since admission. Bilateral pedal pulses are palpable at +2. NEUROLOGIC: She is awake, alert and oriented times three. LABORATORY: Blood sugars have run between 90 and 115. Urine micro shows urine culture is pending. Preliminary blood cultures show no growth after 48 hours. All other labs and films have been reviewed via the EMR. ASSESSMENT: 1. Severe sepsis secondary to cellulitis and most likely left lower lobe pneumonia. 2. History of congestive heart failure without exacerbation although her chest x-ray showed some increased congestion. 3. Chronic obstructive pulmonary disease without exacerbation although her COPD may be complicated by her left lower lobe pneumonia. 4. Left lower lobe pneumonia, most likely hospital acquired as the patient lives in an assisted living center. 5. Diabetes mellitus, type 2. 6. Depression with anxiety. 7. Altered mental status, improved with fluids and treatment. PLAN: We will continue present supportive care. I will order lab and a chest x-ray for Friday morning. Will need to contact Dr. Wallace at that time to see what her recommendations are on IV antibiotic coverage. At this point I have talked to Dr. Soliman, her primary care physician, and we have agreed that she should continue on her vancomycin and Zosyn until we speak to Infectious Diseases. I will also contact [employer] to find out about her Swing Bed days. If she has to continue on IV antibiotic therapy it would be most beneficial for her to go from the Acute Care setting to a Swing Bed patient. She had a blood sugar and I have ordered routine blood sugar checks to follow those results. At this point will continue to monitor closely and follow as needed. #[id number] [facility]
[2019-08-07] MEDS: INSULIN LISPRO 100 UNITS/ML PEN SUBCU SCH ×2 (16:39→21:15)
[2019-08-07] MEDS ORDERED: SODIUM CHLORIDE 0.9% 250ML 250 ML ONE ×2 (17:50→18:52)
[2019-08-07] MEDS ORDERED: VANCOMYCIN HCL INJ 1,000 MG VIAL IVPB ONE ×2 (17:50→18:54)
[2019-08-07] MEDS: VANCOMYCIN HCL INJ 1,000 MG in SODIUM CHLORIDE 0.9% 250ML 250 ML IVPB SCH (17:51)
[2019-08-07] MEDS: MELATONIN 3 MG TAB PO SCH (20:35)
[2019-08-07] MEDS: QUEtiapine FUMARATE 100 MG TAB PO SCH (20:38)
[2019-08-08] MEDS: PIPERACILLIN/TAZOBACTAM 3.375 GM in SODIUM CHLORIDE 0.9% 100ML 100 ML IVPB SCH ×4 (00:34→23:43)
[2019-08-08] MEDS: VANCOMYCIN HCL INJ 1,000 MG in SODIUM CHLORIDE 0.9% 250ML 250 ML IVPB SCH ×2 (05:41→20:09)
[2019-08-08] MEDS: INSULIN LISPRO 100 UNITS/ML PEN SUBCU SCH ×4 (07:17→22:30)
[2019-08-08] MEDS: IPRATROPIUM/ALBUTEROL 3 ML VIAL NEB SCH ×2 (07:43→20:28)
[2019-08-08] MEDS: metFORMIN HCL 500 MG TAB PO SCH ×2 (07:53→17:47)
[2019-08-08] MEDS: [UNRECOGNIZED DRUG - OTHER] PO SCH ×3 (07:53→17:55)
[2019-08-08] MEDS ORDERED: VANCOMYCIN HCL INJ 1,000 MG in SODIUM CHLORIDE 0.9% 250ML 250 ML IVPB SCH (08:30)
[2019-08-08] MEDS ORDERED: SODIUM CHLORIDE 0.9% 100ML 100 ML IVPB ONE ×2 (09:31→17:47)
[2019-08-08] MEDS ORDERED: PIPERACILLIN/TAZOBACTAM 3.375 GM VIAL IVPB ONE ×3 (09:31→19:53)
[2019-08-08] MEDS: BIFIDOBACTERIUM INFANTIS 4 MG CAP PO SCH ×2 (09:42→20:16)
[2019-08-08] MEDS: METOCLOPRAMIDE HCL 5 MG TAB PO SCH ×4 (09:42→20:13)
[2019-08-08] MEDS: GABAPENTIN 400 MG CAP PO SCH ×2 (09:42→20:14)
[2019-08-08] MEDS: LOSARTAN POTASSIUM 25 MG TAB PO SCH (09:42)
[2019-08-08] MEDS: guaiFENesin ER TAB 600 MG TAB PO SCH ×2 (09:42→20:17)
[2019-08-08] MEDS: CITALOPRAM HBR 20 MG TAB PO SCH (09:44)
[2019-08-08] MEDS: FUROSEMIDE 40 MG TAB PO SCH ×2 (09:44→17:47)
[2019-08-08] MEDS: SPIRONOLACTONE 25 MG TAB PO SCH (09:44)
[2019-08-08] MEDS: CHLORHEXIDINE GLUC 4% 15ML 45 ML, WATER FOR IRRIGATION 1,000 ML TOP SCH ×4 (09:44→20:18)
[2019-08-08] MEDS: APIXABAN 5 MG TAB PO SCH ×2 (09:44→20:16)
[2019-08-08] MEDS: FERROUS SULFATE 325 MG TAB PO SCH (09:44)
[2019-08-08] MEDS: HYDROMORPHONE PO SCH ×2 (09:45→20:18)
[2019-08-08] MEDS: NICOTINE PATCH 21 MG TD SCH (09:45)
[2019-08-08] MEDS: lamoTRIgine 25 MG TAB PO SCH (09:45)
[2019-08-08] MEDS: HYDROXYCHLOROQUINE SULFATE PO SCH ×2 (09:45→20:17)
--- NOTE | 2019-08-08 16:16 | PN ---
DATE: 08/08/19 SUPERVISING PHYSICIAN: Karri Kim M.D. SUBJECTIVE: The patient is sitting up in bed. She says she is feeling better. She would like to get her Lyman catheter out. I have encouraged her to ambulate frequently and that we would discontinue her Lyman catheter. She denies any shortness of breath, nausea, vomiting or chest pain. OBJECTIVE: VITAL SIGNS: Temperature 98.2, heart rate 75, blood pressure 113/68, respiratory rate 18, O2 sat 95% on 2 liters nasal cannula. RESPIRATORY: Slightly diminished at the bases but otherwise clear to auscultation. CARDIAC: Regular rate and rhythm. GASTROINTESTINAL: Abdomen is soft, nondistended, non-tender. Bowel sounds are positive. EXTREMITIES: Bilateral pedal pulses are palpable at +2. Her left great toe continues to have the area of cyanosis on the medial portion of her left great toe as well as the tip, but the tissue around it is pink. There is no warmth. No fluctuance. It is improved over the last several days. NEUROLOGIC: She is awake, alert and oriented times three. LABORATORY: Blood sugars have run between 134 and 206. Preliminary blood cultures show no growth after 3 days. Urine culture is pending. All other labs and films have been reviewed via the EMR. ASSESSMENT: 1. Severe sepsis secondary to cellulitis and most likely left lower lobe pneumonia. 2. History of congestive heart failure without exacerbation although her chest x-ray showed some increased congestion. 3. Chronic obstructive pulmonary disease without exacerbation although her COPD may be complicated by her left lower lobe pneumonia. 4. Left lower lobe pneumonia, most likely hospital acquired as the patient lives in an assisted living center. 5. Diabetes mellitus, type 2. 6. Depression with anxiety. 7. Altered mental status, improved with fluids and treatment. PLAN: We will continue present supportive care. I have ordered routine lab for in the morning. Will do bladder training this afternoon and discontinue her Lyman catheter after bladder training. She will also have a chest x-ray in the morning. It is imperative that someone speaks to Dr. Wallace in the morning about the length of her antibiotic treatment and if she needs IV antibiotics or not due to her left great toe cellulitis, pneumonia as well as mild urinary tract infection. If she has to stay in the hospital, she will need to be discharged from the Acute Care setting and placed in Swing Bed. I have ordered ambulation 4 times daily. I will send another request for PT to get her up and get her moving. Will continue to monitor closely and follow as needed. #[id number] [facility]
[2019-08-08] MEDS ORDERED: SODIUM CHLORIDE 0.9% 250ML 250 ML ONE (19:48)
[2019-08-08] MEDS ORDERED: VANCOMYCIN HCL INJ 1,000 MG VIAL IVPB ONE (19:49)
[2019-08-08] MEDS ORDERED: SODIUM CHL 0.9% 100ML MINI-BAG 100 ML IVPB ONE (19:54)
[2019-08-08] MEDS: QUEtiapine FUMARATE 100 MG TAB PO SCH (20:13)
[2019-08-08] MEDS: MELATONIN 3 MG TAB PO SCH (20:16)
[2019-08-09] MEDS ORDERED: PIPERACILLIN/TAZOBACTAM 3.375 GM in SODIUM CHLORIDE 0.9% 100ML 100 ML IVPB ONE ×2
[2019-08-09] MEDS ORDERED: SODIUM CHL 0.9% 100ML MINI-BAG 100 ML IVPB ONE (04:55)
[2019-08-09] MEDS ORDERED: SODIUM CHLORIDE 0.9% 250ML 250 ML ONE (04:55)
[2019-08-09] MEDS ORDERED: VANCOMYCIN HCL INJ 1,000 MG VIAL IVPB ONE (04:55)
[2019-08-09] MEDS ORDERED: PIPERACILLIN/TAZOBACTAM 3.375 GM VIAL IVPB ONE ×2 (04:56→11:28)
[2019-08-09] MEDS: PIPERACILLIN/TAZOBACTAM 3.375 GM in SODIUM CHLORIDE 0.9% 100ML 100 ML IVPB SCH (05:21)
[2019-08-09] MEDS: VANCOMYCIN HCL INJ 1,000 MG in SODIUM CHLORIDE 0.9% 250ML 250 ML IVPB SCH (06:37)
--- NOTE | 2019-08-09 07:15 | RAD ---
EXAM: XR Chest, 2 Views CLINICAL HISTORY: LLL PNA TECHNIQUE: Frontal and lateral views of the chest. COMPARISON: 08/06/2019. FINDINGS: Limitations: None. Lungs: Stable mild left basilar atelectasis. Pleural space: Chronic appearing blunting of the posterior costophrenic sulci noted. No pneumothorax. Heart: Stable cardiac shadow. Mediastinum: Unremarkable. Bones/joints: Unremarkable. Tubes, lines and devices: Stable cardiac pacing device. Right percutaneous catheter terminates at the cavoatrial junction. IMPRESSION: 1. Stable mild left basilar atelectasis. 2. Lines and tubes as above. Electronically signed by: Janis Jackson MD 08/09/2019 7:13 AM CDT
[2019-08-09] MEDS: metFORMIN HCL 500 MG TAB PO SCH (07:42)
[2019-08-09] MEDS: [UNRECOGNIZED DRUG - OTHER] PO SCH ×2 (07:42→11:33)
[2019-08-09] MEDS: INSULIN LISPRO 100 UNITS/ML PEN SUBCU SCH ×2 (07:43→11:33)
[2019-08-09] MEDS: IPRATROPIUM/ALBUTEROL 3 ML VIAL NEB SCH (07:56)
[2019-08-09] MEDS: METOCLOPRAMIDE HCL 5 MG TAB PO SCH ×2 (08:05→11:33)
[2019-08-09] MEDS: SPIRONOLACTONE 25 MG TAB PO SCH (08:05)
[2019-08-09] MEDS: GABAPENTIN 400 MG CAP PO SCH (08:05)
[2019-08-09] MEDS: lamoTRIgine 25 MG TAB PO SCH (08:06)
[2019-08-09] MEDS: LOSARTAN POTASSIUM 25 MG TAB PO SCH (08:06)
[2019-08-09] MEDS: FERROUS SULFATE 325 MG TAB PO SCH (08:06)
[2019-08-09] MEDS: guaiFENesin ER TAB 600 MG TAB PO SCH (08:06)
[2019-08-09] MEDS: BIFIDOBACTERIUM INFANTIS 4 MG CAP PO SCH (08:06)
[2019-08-09] MEDS: CITALOPRAM HBR 20 MG TAB PO SCH (08:07)
[2019-08-09] MEDS: NICOTINE PATCH 21 MG TD SCH (08:07)
[2019-08-09] MEDS: HYDROXYCHLOROQUINE SULFATE PO SCH (08:07)
[2019-08-09] MEDS: APIXABAN 5 MG TAB PO SCH (08:07)
[2019-08-09] MEDS: FUROSEMIDE 40 MG TAB PO SCH (08:08)
[2019-08-09] MEDS: CHLORHEXIDINE GLUC 4% 15ML 45 ML, WATER FOR IRRIGATION 1,000 ML TOP SCH ×2 (08:08)
[2019-08-09] MEDS: HYDROMORPHONE PO SCH (08:12)
[2019-08-09] MEDS ORDERED: SODIUM CHLORIDE 0.9% 100ML 100 ML IVPB ONE (11:29)
[2019-08-09] MEDS ORDERED: PIPERACILLIN/TAZOBACTAM 3.375 GM in SODIUM CHLORIDE 0.9% 100ML 100 ML IVPB SCH (14:00)
[2019-08-09 15:36] VITALS: BP 124/72; TEMP 98.3; O2SAT 96
--- NOTE | 2019-08-09 21:38 | DS ---
SUPERVISING PHYSICIAN: Albert Soliman M.D. ADMISSION DIAGNOSIS: 1. Bilateral lower extremity cellulitis. 2. History of congestive heart failure with no acute exacerbation. 3. History of chronic obstructive pulmonary disease with no acute exacerbation. 4. Diabetes mellitus, type 2. 5. Depression with anxiety. DISCHARGE DIAGNOSIS: 1. Severe sepsis secondary to cellulitis and most likely left lower lobe pneumonia with the patient able to transition to oral antibiotic therapy. 2. History of congestive heart failure with echocardiogram pending at time of review and discharge with no signs of exacerbation at time of discharge. 3. Chronic obstructive pulmonary disease without exacerbation secondary to left lower lobe pneumonia, improving with antibiotics. 4. Left lower lobe pneumonia, likely hospital acquired with the patient living in an assisted living with the patient showing to be responding to antibiotic therapy. 5. Diabetes mellitus, type 2. 6. Depression with anxiety. 7. Altered mental status back to baseline levels with treatment. REASON FOR HOSPITALIZATION: This is a 64-year-old female who went to her doctor's office for followup today. However, upon examination, she had some lower extremity cellulitis. She states this has been going on for about a week. He noted she also had a darkened area on the right great toe. He was concerned it might be necrotic. She lives in a facility several hours away and outpatient treatment is unreliable at this point and she was referred for admission for inpatient IV antibiotics. Therefore, she has been admitted now for that reason. At the time of admission, the patient is alert and oriented. She seems a little anxious. Her lower extremities are erythematous. She has a couple of areas that she has scratched which are scabbed over in addition to a blister on the left lower extremity. Her right great toe has an open wound on the dorsal side and on the mediolateral of the great toe, there is a darkened area which looks callused and could potentially be necrotic. Apparently, she is under hospice for her decompensated systolic heart failure. She lives at [facility] in [place]. LABORATORY STUDIES: White count on admission was 14,800, on discharge to Swing Bed was 7,700. Hemoglobin and hematocrit were stable, on discharge 11 with hematocrit 33.5, platelet count 226,000. Differential did show a left shift initially on admission and had normalized prior to discharge. Chemistries showed sodium 133, potassium 5.5, creatinine 1.41 on admission, prior to discharge electrolytes were all showing to be within normal limits. BUN was down to 19, creatinine 1.15. Blood sugars ranged from 90 to 206. C reactive protein was 5.5. Initial lactic acid on admission was 2.4, after initiation of septic protocol and fluids was down to 1.3. Liver functions were all within normal limits. TSH was normal at 0.72. Magnesium levels showed to be within normal limits, on discharge was 1.9. Calcium at discharge was 9.3. Urinalysis showed a large amount of leukocyte esterase, on microscopic revealed 5 to 10 RBCs, greater than 100 WBCs and 1+ bacteria. MICROBIOLOGY: Final urine culture results showed no growth on 36 hours of incubation. Blood cultures remained negative after 5 days. RADIOLOGY: She had a chest x-ray initially on admission and prior to admission to the floor per radiology interpretation showed congestive heart failure with volume overload. She had multiple chest x-rays with the last chest x-ray on discharge prior to discharge from Acute Care to admission to Swing Bed showed stable mild left basilar atelectasis. She had lower extremity ultrasounds that showed no deep venous thrombosis to the right and left lower extremities. She had a lower extremity bilateral arterial ultrasound and per radiology interpretation showed no hemodynamically significant stenosis bilaterally. PROCEDURES: She had a femoral central line placed. Please see Dat Gonzalez's note. She also had a PICC line placed. MEDICAL CONSULTATION: Dr. Hollins, general surgery for evaluation of lower extremity cellulitis. Please see his note for details. HOSPITAL COURSE: Ms. Mendez was admitted on 08/04/19 for sepsis related to underlying urinary tract infection with pneumonia. She did have some acute decompensation initially on admission that required fluid resuscitation and volume replacement. She had a max temperature of 103.0 with blood pressure showing to be hemodynamically stable. Admission blood pressure was 131/72, heart rate 80. She was satting 92% on room air. On discharge to Swing Bed, temperature 98.4, pulse 68, blood pressure 124/72, respirations 18, satting 96% on 2 liters nasal cannula. She was started on antibiotic coverage with Zosyn and vancomycin per Pharmacy protocol. She responded well to treatment and clinically was found stable enough to discharge. Given the lower extremity cellulitis it was felt the need for continued antibiotic therapy with vancomycin and she had significant deconditioning while on Acute Care, therefore it was felt best served that she should discharge to Swing Bed for continued antibiotic therapy as well as reconditioning. PLAN: Ms. Mendez is going to be discharged to Swing Bed for continued antibiotic therapy with vancomycin and oral Augmentin. Diet was diabetic diet as tolerated. Activity is as per Physical Therapy. Medications on discharge please refer to the MAR. Condition on discharge was stable and improved. DISPOSITION: The patient is discharged to Swing Bed. #[id number] [facility]
== END 2019-08-09 15:38 | disposition swing bed (61) | DRG 871 ==
LOC: MS 12:35
PROVIDERS: ADMIT Nurse Practitioner; ATTEND Nurse Practitioner Family
PROC: 02HV33Z Insertion of Infusion Device into Superior Vena Cava, Percutaneous Approach (ICD-10-PCS; principal; 2019-08-04)
PROC: 06HM33Z Insertion of Infusion Device into Right Femoral Vein, Percutaneous Approach (ICD-10-PCS; 2019-08-04)
DX: A41.9 Sepsis, unspecified organism (principal); J18.1 Lobar pneumonia, unspecified organism; L03.115 Cellulitis of right lower limb; I50.22 Chronic systolic (congestive) heart failure; J44.0 Chronic obstructive pulmonary disease with (acute) lower respiratory infection; N39.0 Urinary tract infection, site not specified; L03.116 Cellulitis of left lower limb; I42.9 Cardiomyopathy, unspecified; R65.20 Severe sepsis without septic shock; I11.0 Hypertensive heart disease with heart failure; E89.0 Postprocedural hypothyroidism; I25.10 Atherosclerotic heart disease of native coronary artery without angina pectoris; E11.9 Type 2 diabetes mellitus without complications; M81.0 Age-related osteoporosis without current pathological fracture; M19.90 Unspecified osteoarthritis, unspecified site; F32.9 Major depressive disorder, single episode, unspecified; D50.9 Iron deficiency anemia, unspecified; E78.5 Hyperlipidemia, unspecified; F41.9 Anxiety disorder, unspecified; F17.210 Nicotine dependence, cigarettes, uncomplicated; I25.2 Old myocardial infarction; Z88.8 Allergy status to other drugs, medicaments and biological substances; Z88.1 Allergy status to other antibiotic agents; Z88.2 Allergy status to sulfonamides; Z88.3 Allergy status to other anti-infective agents; Y95 Nosocomial condition

== ENCOUNTER 2019-08-09 15:58 | Inpatient (IN) | payer MEDICARE, OTHER ==
[2019-08-09] MEDS ORDERED: GLUCAGON INJ 1 MG VIAL SUBCU PRN (16:25)
[2019-08-09] MEDS ORDERED: SODIUM PHOS/BIPHOS ENEMA ADULT 133 ML BTTL PR PRN (16:25)
[2019-08-09] MEDS ORDERED: ACETAMINOPHEN 500 MG TAB PO PRN (16:25)
[2019-08-09] MEDS ORDERED: MAGNESIUM HYDROXIDE 30 ML UD PO PRN (16:25)
[2019-08-09] MEDS ORDERED: DEXTROSE 50% 25 GM/50 ML SYG IV PRN (16:25)
[2019-08-09] MEDS ORDERED: VANCOMYCIN PER PHARMACY INJ SCH (16:30)
[2019-08-09] MEDS ORDERED: ONDANSETRON ODT 8 MG TAB PO PRN (17:22)
[2019-08-09] MEDS ORDERED: POLYETHYLENE GLYCOL 3350 17 GM PCKT PO PRN (17:22)
[2019-08-09] MEDS ORDERED: diphenhydrAMINE HCL 25 MG CAP PO PRN (17:22)
[2019-08-09] MEDS ORDERED: HYDROmorphone HCL 2 MG TAB PO PRN (17:22)
[2019-08-09] MEDS ORDERED: guaiFENesin/DEXTROMETH SYRUP 5 ML UD PO PRN (17:22)
[2019-08-09] MEDS ORDERED: LORAZEPAM PO PRN (17:22)
[2019-08-09] MEDS ORDERED: ALBUTEROL SULFATE 2.5 MG/3 ML VIAL NEB PRN (17:22)
[2019-08-09] MEDS ORDERED: SIMETHICONE 80 MG TAB PO PRN (17:22)
[2019-08-09] MEDS ORDERED: VANCOMYCIN PER PHARMACY IVPB SCH (17:30)
[2019-08-09] MEDS: INSULIN LISPRO 100 UNITS/ML PEN SUBCU SCH ×2 (17:31→21:13)
[2019-08-09] MEDS ORDERED: QUEtiapine FUMARATE 100 MG TAB ONE (19:25)
[2019-08-09] MEDS ORDERED: SODIUM CHLORIDE 0.9% 250ML 250 ML ONE (19:26)
[2019-08-09] MEDS ORDERED: MELATONIN 3 MG TAB ONE (19:27)
[2019-08-09] MEDS ORDERED: METOCLOPRAMIDE HCL 5 MG TAB ONE (19:27)
[2019-08-09] MEDS ORDERED: VANCOMYCIN HCL INJ 1,000 MG VIAL IVPB ONE (19:28)
[2019-08-09] MEDS: VANCOMYCIN HCL INJ 1,000 MG in SODIUM CHLORIDE 0.9% 250ML 250 ML IVPB SCH (19:44)
[2019-08-09] MEDS: IPRATROPIUM/ALBUTEROL 3 ML VIAL NEB SCH (20:21)
[2019-08-09] MEDS ORDERED: HYDROmorphone HCL INJ 2 MG/ML VIAL IV ONE (20:47)
[2019-08-09] MEDS ORDERED: NON-FORMULARY MEDICATION 1 EA MIS (Melatonin [Melatonin] 10 MG) PO SCH (21:00)
[2019-08-09] MEDS ORDERED: RANITIDINE HCL 75 MG PO SCH (21:00)
[2019-08-09] MEDS ORDERED: [UNRECOGNIZED DRUG - OTHER] PO SCH (21:00)
[2019-08-09] MEDS ORDERED: QUETIAPINE FUMARATE 150 MG PO SCH (21:00)
[2019-08-09] MEDS ORDERED: GUAIFENESIN 400 MG PO SCH (21:00)
[2019-08-09] MEDS ORDERED: AMOXICILLIN & POT CLAVULANATE 875 MG TAB PO SCH (21:00)
[2019-08-09] MEDS ORDERED: METOCLOPRAMIDE HCL 10 MG PO SCH (21:00)
[2019-08-09] MEDS ORDERED: FUROSEMIDE 40 MG TAB PO SCH (21:00)
[2019-08-09] MEDS: AMOXICILLIN & POT CLAVULANATE 875 MG TAB PO SCH (21:03)
[2019-08-09] MEDS: GABAPENTIN 400 MG CAP PO SCH (21:07)
[2019-08-09] MEDS: guaiFENesin ER TAB 600 MG TAB PO SCH (21:08)
[2019-08-09] MEDS: HYDROXYCHLOROQUINE SULFATE PO SCH (21:11)
[2019-08-09] MEDS: HYDROMORPHONE HCL PO SCH (21:12)
[2019-08-09] MEDS: INSULIN GLARGINE SC SCH (21:18)
--- NOTE | 2019-08-09 22:04 | HP ---
SUPERVISING PHYSICIAN: Albert Soliman M.D. CHIEF COMPLAINT: Left lower extremity cellulitis and deconditioning. HISTORY OF PRESENT ILLNESS: Ms. Mendez was admitted to Acute Care on 08/04/19 for sepsis related to pneumonia and possibly urinary tract infection. Ms. Mendez was admitted on 08/04/19 for sepsis related to underlying urinary tract infection with pneumonia. She did have some acute decompensation initially on admission that required fluid resuscitation and volume replacement. She had a max temperature of 103.0 with blood pressure showing to be hemodynamically stable. Admission blood pressure was 131/72, heart rate 80. She was satting 92% on room air. On discharge to Swing Bed, temperature 98.4, pulse 68, blood pressure 124/72, respirations 18, satting 96% on 2 liters nasal cannula. She was started on antibiotic coverage with Zosyn and vancomycin per Pharmacy protocol. She responded well to treatment and clinically was found stable enough to discharge. Given the lower extremity cellulitis it was felt the need for continued antibiotic therapy with vancomycin and she had significant deconditioning while on Acute Care, therefore it was felt best served that she should discharge to Swing Bed for continued antibiotic therapy as well as reconditioning. The patient is now admitted to Swing Bed for continuation of therapy, further antibiotics and rehabilitation efforts. PAST MEDICAL HISTORY: 1. Systolic heart failure with an estimated ejection fraction of 40% on last echo. She has had a pacemaker and ICD for that. 2. Hypothyroidism. 3. Hypertension. 4. Myocardial infarction. 5. Coronary artery disease. 6. Type 2 diabetes mellitus. 7. Osteoporosis. 8. Osteoarthritis. 9. Chronic obstructive pulmonary disease. 10. Migraines. 11. Depression with anxiety. 12. Iron deficiency anemia. 13. Hyperlipidemia. PAST SURGICAL HISTORY: 1. Appendectomy. 2. Cholecystectomy. 3. Thyroidectomy. 4. Hysterectomy. 5. L4 and L5 laminectomy. 6. Titanium chrystal in her right arm. 7. D&C at age 12. 8. Cardiac catheterization. MEDICATIONS: Please see medication list verified in the computer. ALLERGIES: MACROLIDE, SULFONAMIDES, JANUVIA, CAFERGOT. FAMILY HISTORY: Unknown as she is adopted. SOCIAL HISTORY: The patient is a smoker. She does not use illicit drugs or alcohol. REVIEW OF SYSTEMS: On admission to Swing Bed, denied any fever or chills or unintentional weight loss. HEENT: Denied any headaches, vision changes, ear aches, sore throat, nasal congestion. RESPIRATORY: Continued cough. Denied any hemoptysis or pleuritic chest pain. CARDIOVASCULAR: Denied any chest pains, palpitations or peripheral edema. GASTROINTESTINAL: Denied any nausea, vomiting, diarrhea, constipation or abdominal pain. GENITOURINARY: Denied any dysuria, hematuria or flank pain. HEMATOLOGIC: Denied any easy bruising or transfusion reaction. MUSCULOSKELETAL: Positive for lower extremity cellulitis as noted in History of Present Illness. No joint pain or muscle cramping. ENDOCRINE: No polydipsia, polyuria or polyphagia. No heat or cold intolerance. NEUROLOGIC: Negative for any syncope, paresthesias, dizziness, seizures or ataxia. PHYSICAL EXAMINATION: VITAL SIGNS: Temperature 98.6, pulse 68, blood pressure 139/71, respirations 18, satting 98% on 2 liters nasal cannula. Admission weight is 77.6 kg. GENERAL: The patient appeared to be in no acute distress, resting comfortably. She is alert. HEENT: Tympanic membranes are clear. Oropharynx is pink and moist without any lesions. NECK: Supple, non-tender. Full range of motion. No jugular venous distention. CHEST: Lung sounds were just diminished towards the bases bilaterally without any obvious rhonchi, wheezing or rales. CARDIOVASCULAR: Regular rate and rhythm without appreciable murmurs, gallops, or rubs. ABDOMEN: Soft, non-tender. Positive bowel sounds. EXTREMITIES: No notable edema. Left great toe has small areas of what appears to be a large blister with some dark discoloration. It is not warm. There is no fluctuance. There are no obvious areas of consolidation. NEUROLOGIC: She is alert and oriented times three. LABORATORY: Pending. Laboratory as needed for vancomycin therapy. RADIOLOGY: No repeat radiology studies pending. ASSESSMENT: 1. Severe sepsis secondary to cellulitis and most likely left lower lobe pneumonia with the patient able to transition to oral antibiotic therapy. 2. History of congestive heart failure with echocardiogram pending at time of review and discharge with no signs of exacerbation at time of discharge. 3. Chronic obstructive pulmonary disease without exacerbation secondary to left lower lobe pneumonia, improving with antibiotics. 4. Left lower lobe pneumonia, likely hospital acquired with the patient living in an assisted living with the patient showing to be responding to antibiotic therapy. 5. Diabetes mellitus, type 2. 6. Depression with anxiety. 7. Altered mental status back to baseline levels with treatment. PLAN: Ms. Mendez is going to be admitted to Swing Bed program for continuation of antibiotic therapy with oral antibiotics to include Augmentin and parenteral antibiotics to include vancomycin per Pharmacy protocol. Will have a Physical Therapy consultation. She will be on an ADA diet. Will have her on sliding scale insulin per protocol. She is on DVT prophylaxis on Eliquis. Will anticipate her length of stay to be at least 3 to 10 days. I will talk to Dr. Wallace tomorrow to get a better picture of length of antibiotic therapy. Until we can transition her back to outpatient management will continue to monitor and treat as needed. [facility][id number] [facility]
[2019-08-10] MEDS ORDERED: OMEPRAZOLE CAP 20 MG CAP PO SCH (07:00)
--- NOTE | 2019-08-10 07:15 | RAD ---
EXAM DESCRIPTION: XR CHEST 2 VIEWS CLINICAL HISTORY: pneumonia COMPARISON: Comparison 08/09/2019 TECHNIQUE: PA/lateral FINDINGS: Heart size top limits normal. Cardiac pacemaker. Normal mediastinal contours Linear subsegmental atelectasis retrocardiac left lower lobe and at the left costophrenic angle. No pulmonary edema, alveolar consolidation or effusion. Right upper extremity PICC line distal tip in the superior vena cava. Fracture of hardware right proximal humerus. No acute bony abnormality IMPRESSION: No acute cardiopulmonary process. Electronically signed by: Albert Mcgregor MD 08/10/2019 7:13 AM CDT
[2019-08-10] MEDS: IPRATROPIUM/ALBUTEROL 3 ML VIAL NEB SCH ×2 (07:39→20:40)
[2019-08-10] MEDS: INSULIN LISPRO 100 UNITS/ML PEN SUBCU SCH ×4 (07:58→21:46)
[2019-08-10] MEDS: metFORMIN HCL 500 MG TAB PO SCH ×2 (07:58→16:35)
[2019-08-10] MEDS ORDERED: SODIUM CHLORIDE 0.9% 250ML 250 ML ONE ×2 (08:21→19:48)
[2019-08-10] MEDS ORDERED: VANCOMYCIN HCL INJ 1,000 MG VIAL IVPB ONE ×2 (08:22→19:49)
[2019-08-10] MEDS: VANCOMYCIN HCL INJ 1,000 MG in SODIUM CHLORIDE 0.9% 250ML 250 ML IVPB SCH ×2 (08:26→20:00)
[2019-08-10] MEDS: METOCLOPRAMIDE HCL 5 MG TAB PO SCH ×4 (09:22→21:34)
[2019-08-10] MEDS: lamoTRIgine 25 MG TAB PO SCH (09:23)
[2019-08-10] MEDS: LOSARTAN POTASSIUM 25 MG TAB PO SCH (09:23)
[2019-08-10] MEDS: FUROSEMIDE 40 MG TAB PO SCH ×2 (09:23→16:36)
[2019-08-10] MEDS: AMOXICILLIN & POT CLAVULANATE 875 MG TAB PO SCH ×2 (09:23→21:33)
[2019-08-10] MEDS: FERROUS SULFATE 325 MG TAB PO SCH (09:23)
[2019-08-10] MEDS: APIXABAN 5 MG TAB PO SCH ×2 (09:23→21:33)
[2019-08-10] MEDS: guaiFENesin ER TAB 600 MG TAB PO SCH ×2 (09:23→21:32)
[2019-08-10] MEDS: GABAPENTIN 400 MG CAP PO SCH ×2 (09:23→21:33)
[2019-08-10] MEDS: CITALOPRAM HBR 20 MG TAB PO SCH (09:23)
[2019-08-10] MEDS: DOCUSATE SODIUM 100 MG CAP PO SCH (09:23)
[2019-08-10] MEDS: SPIRONOLACTONE 25 MG TAB PO SCH (09:23)
[2019-08-10] MEDS: HYDROMORPHONE HCL PO SCH ×2 (09:30→21:36)
[2019-08-10] MEDS: HYDROXYCHLOROQUINE SULFATE PO SCH ×2 (09:30→21:36)
[2019-08-10] MEDS: [UNRECOGNIZED DRUG - OTHER] PO SCH ×2 (11:40→16:36)
[2019-08-10] MEDS: QUEtiapine FUMARATE 100 MG TAB PO SCH (21:33)
[2019-08-10] MEDS: MELATONIN 3 MG TAB PO SCH (21:35)
[2019-08-10] MEDS: INSULIN GLARGINE SC SCH (21:37)
[2019-08-11] MEDS ORDERED: OMEPRAZOLE CAP 20 MG CAP ONE (02:37)
[2019-08-11] MEDS: PANTOPRAZOLE SODIUM TAB 40 MG PO SCH (07:11)
[2019-08-11] MEDS: INSULIN LISPRO 100 UNITS/ML PEN SUBCU SCH ×4 (07:21→21:05)
[2019-08-11] MEDS ORDERED: SODIUM CHLORIDE 0.9% 250ML 250 ML ONE ×2 (07:43→14:24)
[2019-08-11] MEDS ORDERED: VANCOMYCIN HCL INJ 1,000 MG VIAL IVPB ONE ×2 (07:45→14:24)
[2019-08-11] MEDS: metFORMIN HCL 500 MG TAB PO SCH ×2 (08:00→17:19)
[2019-08-11] MEDS: VANCOMYCIN HCL INJ 1,000 MG in SODIUM CHLORIDE 0.9% 250ML 250 ML IVPB SCH ×2 (08:00→08:16)
[2019-08-11] MEDS: [UNRECOGNIZED DRUG - OTHER] PO SCH ×3 (08:00→17:19)
[2019-08-11] MEDS: IPRATROPIUM/ALBUTEROL 3 ML VIAL NEB SCH ×2 (08:46→19:47)
[2019-08-11] MEDS: lamoTRIgine 25 MG TAB PO SCH (09:27)
[2019-08-11] MEDS: FUROSEMIDE 40 MG TAB PO SCH ×2 (09:27→17:19)
[2019-08-11] MEDS: FERROUS SULFATE 325 MG TAB PO SCH (09:27)
[2019-08-11] MEDS: AMOXICILLIN & POT CLAVULANATE 875 MG TAB PO SCH ×2 (09:27→20:52)
[2019-08-11] MEDS: SPIRONOLACTONE 25 MG TAB PO SCH (09:27)
[2019-08-11] MEDS: GABAPENTIN 400 MG CAP PO SCH ×2 (09:27→20:54)
[2019-08-11] MEDS: METOCLOPRAMIDE HCL 5 MG TAB PO SCH ×4 (09:27→20:55)
[2019-08-11] MEDS: APIXABAN 5 MG TAB PO SCH ×2 (09:27→20:52)
[2019-08-11] MEDS: CITALOPRAM HBR 20 MG TAB PO SCH (09:27)
[2019-08-11] MEDS: DOCUSATE SODIUM 100 MG CAP PO SCH (09:27)
[2019-08-11] MEDS: guaiFENesin ER TAB 600 MG TAB PO SCH ×2 (09:27→20:54)
[2019-08-11] MEDS: LOSARTAN POTASSIUM 25 MG TAB PO SCH (09:27)
[2019-08-11] MEDS: HYDROXYCHLOROQUINE SULFATE PO SCH ×2 (09:28→20:53)
[2019-08-11] MEDS: HYDROMORPHONE HCL PO SCH ×2 (09:28→20:52)
[2019-08-11] MEDS ORDERED: VANCOMYCIN HCL INJ 500 MG VIAL ONE (14:24)
[2019-08-11] MEDS: VANCOMYCIN HCL INJ 1,000 MG, VANCOMYCIN HCL INJ 250 MG in SODIUM CHLORIDE 0.9% 250ML 25... IVPB SCH (14:46)
[2019-08-11] MEDS: MELATONIN 3 MG TAB PO SCH (20:53)
[2019-08-11] MEDS: QUEtiapine FUMARATE 100 MG TAB PO SCH (20:55)
[2019-08-11] MEDS: INSULIN GLARGINE SC SCH (21:08)
[2019-08-12] MEDS: PANTOPRAZOLE SODIUM TAB 40 MG PO SCH (06:35)
[2019-08-12] MEDS ORDERED: VANCOMYCIN HCL INJ 500 MG VIAL ONE ×2 (07:30→19:13)
[2019-08-12] MEDS ORDERED: SODIUM CHLORIDE 0.9% 250ML 250 ML ONE ×2 (07:31→19:14)
[2019-08-12] MEDS ORDERED: VANCOMYCIN HCL INJ 1,000 MG VIAL IVPB ONE ×2 (07:31→19:15)
[2019-08-12] MEDS: INSULIN LISPRO 100 UNITS/ML PEN SUBCU SCH ×4 (07:39→21:00)
[2019-08-12] MEDS: VANCOMYCIN HCL INJ 1,000 MG, VANCOMYCIN HCL INJ 250 MG in SODIUM CHLORIDE 0.9% 250ML 25... IVPB SCH (07:45)
[2019-08-12] MEDS: [UNRECOGNIZED DRUG - OTHER] PO SCH ×3 (07:45→16:40)
[2019-08-12] MEDS: metFORMIN HCL 500 MG TAB PO SCH ×2 (07:45→16:40)
[2019-08-12] MEDS: IPRATROPIUM/ALBUTEROL 3 ML VIAL NEB SCH ×2 (08:46→20:16)
[2019-08-12] MEDS: LOSARTAN POTASSIUM 25 MG TAB PO SCH (08:58)
[2019-08-12] MEDS: GABAPENTIN 400 MG CAP PO SCH ×2 (08:58→21:02)
[2019-08-12] MEDS: CITALOPRAM HBR 20 MG TAB PO SCH (08:58)
[2019-08-12] MEDS: AMOXICILLIN & POT CLAVULANATE 875 MG TAB PO SCH ×2 (08:58→20:59)
[2019-08-12] MEDS: guaiFENesin ER TAB 600 MG TAB PO SCH ×2 (08:59→21:02)
[2019-08-12] MEDS: HYDROMORPHONE HCL PO SCH ×2 (08:59→21:00)
[2019-08-12] MEDS: FERROUS SULFATE 325 MG TAB PO SCH (08:59)
[2019-08-12] MEDS: APIXABAN 5 MG TAB PO SCH ×2 (08:59→21:00)
[2019-08-12] MEDS: FUROSEMIDE 40 MG TAB PO SCH ×2 (08:59→16:40)
[2019-08-12] MEDS: lamoTRIgine 25 MG TAB PO SCH (08:59)
[2019-08-12] MEDS: SPIRONOLACTONE 25 MG TAB PO SCH (08:59)
[2019-08-12] MEDS: METOCLOPRAMIDE HCL 5 MG TAB PO SCH ×4 (08:59→21:02)
[2019-08-12] MEDS: DOCUSATE SODIUM 100 MG CAP PO SCH (08:59)
[2019-08-12] MEDS: HYDROXYCHLOROQUINE SULFATE PO SCH ×2 (08:59→21:01)
[2019-08-12] MEDS: MELATONIN 3 MG TAB PO SCH (21:01)
[2019-08-12] MEDS: QUEtiapine FUMARATE 100 MG TAB PO SCH (21:02)
[2019-08-12] MEDS: INSULIN GLARGINE SC SCH (21:06)
[2019-08-13] MEDS: VANCOMYCIN HCL INJ 1,000 MG, VANCOMYCIN HCL INJ 250 MG in SODIUM CHLORIDE 0.9% 250ML 25... IVPB SCH (01:32)
[2019-08-13] MEDS: PANTOPRAZOLE SODIUM TAB 40 MG PO SCH (06:39)
[2019-08-13] MEDS: INSULIN LISPRO 100 UNITS/ML PEN SUBCU SCH ×4 (07:54→20:53)
[2019-08-13] MEDS: metFORMIN HCL 500 MG TAB PO SCH ×2 (07:56→16:51)
[2019-08-13] MEDS: [UNRECOGNIZED DRUG - OTHER] PO SCH ×3 (07:56→16:51)
[2019-08-13] MEDS: SPIRONOLACTONE 25 MG TAB PO SCH (08:38)
[2019-08-13] MEDS: METOCLOPRAMIDE HCL 5 MG TAB PO SCH ×4 (08:38→20:45)
[2019-08-13] MEDS: LOSARTAN POTASSIUM 25 MG TAB PO SCH (08:38)
[2019-08-13] MEDS: APIXABAN 5 MG TAB PO SCH ×2 (08:38→20:45)
[2019-08-13] MEDS: FUROSEMIDE 40 MG TAB PO SCH ×2 (08:38→16:53)
[2019-08-13] MEDS: FERROUS SULFATE 325 MG TAB PO SCH (08:38)
[2019-08-13] MEDS: guaiFENesin ER TAB 600 MG TAB PO SCH ×2 (08:38→20:44)
[2019-08-13] MEDS: AMOXICILLIN & POT CLAVULANATE 875 MG TAB PO SCH ×2 (08:39→20:46)
[2019-08-13] MEDS: DOCUSATE SODIUM 100 MG CAP PO SCH (08:39)
[2019-08-13] MEDS: CITALOPRAM HBR 20 MG TAB PO SCH (08:39)
[2019-08-13] MEDS: GABAPENTIN 400 MG CAP PO SCH ×2 (08:39→20:44)
[2019-08-13] MEDS: HYDROXYCHLOROQUINE SULFATE PO SCH ×2 (08:39→20:46)
[2019-08-13] MEDS: lamoTRIgine 25 MG TAB PO SCH (08:39)
[2019-08-13] MEDS: HYDROMORPHONE HCL PO SCH ×2 (08:39→20:46)
[2019-08-13] MEDS: IPRATROPIUM/ALBUTEROL 3 ML VIAL NEB SCH ×2 (08:54→20:13)
[2019-08-13] MEDS ORDERED: VANCOMYCIN HCL INJ 1,000 MG in SODIUM CHLORIDE 0.9% 250ML 250 ML IVPB SCH (20:00)
[2019-08-13] MEDS ORDERED: VANCOMYCIN HCL INJ 1,000 MG VIAL IVPB ONE (20:02)
[2019-08-13] MEDS ORDERED: SODIUM CHLORIDE 0.9% 250ML 250 ML ONE (20:03)
[2019-08-13] MEDS: QUEtiapine FUMARATE 100 MG TAB PO SCH (20:43)
[2019-08-13] MEDS: MELATONIN 3 MG TAB PO SCH (20:44)
[2019-08-13] MEDS: INSULIN GLARGINE SC SCH (20:55)
[2019-08-14] MEDS: PANTOPRAZOLE SODIUM TAB 40 MG PO SCH (07:06)
[2019-08-14] MEDS ORDERED: VANCOMYCIN PER PHARMACY IVPB SCH (08:00)
[2019-08-14] MEDS ORDERED: VANCOMYCIN HCL INJ 1,000 MG in SODIUM CHLORIDE 0.9% 250ML 250 ML IVPB SCH (08:00)
[2019-08-14] MEDS: IPRATROPIUM/ALBUTEROL 3 ML VIAL NEB SCH ×2 (08:13→20:54)
[2019-08-14] MEDS: INSULIN LISPRO 100 UNITS/ML PEN SUBCU SCH ×4 (09:23→22:26)
[2019-08-14] MEDS: CITALOPRAM HBR 20 MG TAB PO SCH (09:24)
[2019-08-14] MEDS: lamoTRIgine 25 MG TAB PO SCH (09:24)
[2019-08-14] MEDS: AMOXICILLIN & POT CLAVULANATE 875 MG TAB PO SCH ×2 (09:24→20:28)
[2019-08-14] MEDS: GABAPENTIN 400 MG CAP PO SCH ×2 (09:24→20:29)
[2019-08-14] MEDS: FERROUS SULFATE 325 MG TAB PO SCH (09:24)
[2019-08-14] MEDS: FUROSEMIDE 40 MG TAB PO SCH ×2 (09:24→17:04)
[2019-08-14] MEDS: guaiFENesin ER TAB 600 MG TAB PO SCH ×2 (09:24→20:28)
[2019-08-14] MEDS: SPIRONOLACTONE 25 MG TAB PO SCH (09:24)
[2019-08-14] MEDS: METOCLOPRAMIDE HCL 5 MG TAB PO SCH ×4 (09:24→20:28)
[2019-08-14] MEDS: APIXABAN 5 MG TAB PO SCH ×2 (09:24→20:29)
[2019-08-14] MEDS: DOCUSATE SODIUM 100 MG CAP PO SCH (09:25)
[2019-08-14] MEDS: metFORMIN HCL 500 MG TAB PO SCH ×2 (09:25→17:07)
[2019-08-14] MEDS: HYDROMORPHONE HCL PO SCH ×2 (09:29→20:29)
[2019-08-14] MEDS: [UNRECOGNIZED DRUG - OTHER] PO SCH ×3 (09:29→17:04)
[2019-08-14] MEDS: HYDROXYCHLOROQUINE SULFATE PO SCH ×2 (09:29→20:30)
[2019-08-14] MEDS: LOSARTAN POTASSIUM 25 MG TAB PO SCH (09:44)
[2019-08-14] MEDS ORDERED: VANCOMYCIN HCL INJ 1,000 MG VIAL IVPB ONE (13:04)
[2019-08-14] MEDS ORDERED: SODIUM CHLORIDE 0.9% 250ML 250 ML ONE (13:04)
[2019-08-14] MEDS: VANCOMYCIN HCL INJ 1,000 MG in SODIUM CHLORIDE 0.9% 250ML 250 ML IVPB SCH (14:55)
[2019-08-14] MEDS: HYDROmorphone HCL 2 MG TAB PO PRN (17:47)
[2019-08-14] MEDS: QUEtiapine FUMARATE 100 MG TAB PO SCH (20:27)
[2019-08-14] MEDS: MELATONIN 3 MG TAB PO SCH (20:28)
[2019-08-14] MEDS: INSULIN GLARGINE SC SCH (20:30)
[2019-08-15] MEDS: PANTOPRAZOLE SODIUM TAB 40 MG PO SCH (06:13)
[2019-08-15] MEDS: INSULIN LISPRO 100 UNITS/ML PEN SUBCU SCH ×4 (07:52→21:05)
[2019-08-15] MEDS: [UNRECOGNIZED DRUG - OTHER] PO SCH ×3 (07:52→17:10)
[2019-08-15] MEDS: metFORMIN HCL 500 MG TAB PO SCH ×2 (07:52→17:10)
[2019-08-15] MEDS: IPRATROPIUM/ALBUTEROL 3 ML VIAL NEB SCH (08:32)
[2019-08-15] MEDS ORDERED: SODIUM CHLORIDE 0.9% 250ML 250 ML ONE ×2 (08:54→20:22)
[2019-08-15] MEDS ORDERED: VANCOMYCIN HCL INJ 1,000 MG VIAL IVPB ONE ×2 (08:56→20:24)
[2019-08-15] MEDS: VANCOMYCIN HCL INJ 1,000 MG in SODIUM CHLORIDE 0.9% 250ML 250 ML IVPB SCH (08:59)
[2019-08-15] MEDS: APIXABAN 5 MG TAB PO SCH ×2 (09:17→21:05)
[2019-08-15] MEDS: LOSARTAN POTASSIUM 25 MG TAB PO SCH (09:17)
[2019-08-15] MEDS: GABAPENTIN 400 MG CAP PO SCH ×2 (09:17→21:11)
[2019-08-15] MEDS: DOCUSATE SODIUM 100 MG CAP PO SCH (09:17)
[2019-08-15] MEDS: FERROUS SULFATE 325 MG TAB PO SCH (09:17)
[2019-08-15] MEDS: lamoTRIgine 25 MG TAB PO SCH (09:17)
[2019-08-15] MEDS: CITALOPRAM HBR 20 MG TAB PO SCH (09:17)
[2019-08-15] MEDS: SPIRONOLACTONE 25 MG TAB PO SCH (09:17)
[2019-08-15] MEDS: METOCLOPRAMIDE HCL 5 MG TAB PO SCH ×4 (09:17→21:11)
[2019-08-15] MEDS: AMOXICILLIN & POT CLAVULANATE 875 MG TAB PO SCH ×2 (09:17→21:05)
[2019-08-15] MEDS: guaiFENesin ER TAB 600 MG TAB PO SCH ×2 (09:18→21:11)
[2019-08-15] MEDS: FUROSEMIDE 40 MG TAB PO SCH ×2 (09:18→17:10)
[2019-08-15] MEDS: HYDROXYCHLOROQUINE SULFATE PO SCH ×2 (09:18→21:08)
[2019-08-15] MEDS: HYDROMORPHONE HCL PO SCH ×2 (09:18→21:07)
[2019-08-15] MEDS: HYDROmorphone HCL 2 MG TAB PO PRN (18:05)
[2019-08-15] MEDS: INSULIN GLARGINE SC SCH (21:08)
[2019-08-15] MEDS: MELATONIN 3 MG TAB PO SCH (21:10)
[2019-08-15] MEDS: QUEtiapine FUMARATE 100 MG TAB PO SCH (21:12)
[2019-08-15 22:33] VITALS: TEMP 98.5
[2019-08-16] MEDS: VANCOMYCIN HCL INJ 1,000 MG in SODIUM CHLORIDE 0.9% 250ML 250 ML IVPB SCH (01:56)
[2019-08-16] MEDS: PANTOPRAZOLE SODIUM TAB 40 MG PO SCH (06:26)
[2019-08-16] MEDS: INSULIN LISPRO 100 UNITS/ML PEN SUBCU SCH ×2 (07:17→11:37)
[2019-08-16] MEDS: [UNRECOGNIZED DRUG - OTHER] PO SCH ×2 (07:46→11:46)
[2019-08-16] MEDS: metFORMIN HCL 500 MG TAB PO SCH (07:46)
[2019-08-16] MEDS: IPRATROPIUM/ALBUTEROL 3 ML VIAL NEB SCH (07:51)
[2019-08-16] MEDS: AMOXICILLIN & POT CLAVULANATE 875 MG TAB PO SCH (08:04)
[2019-08-16] MEDS: METOCLOPRAMIDE HCL 5 MG TAB PO SCH ×2 (08:05→13:08)
[2019-08-16] MEDS: SPIRONOLACTONE 25 MG TAB PO SCH (08:05)
[2019-08-16] MEDS: FUROSEMIDE 40 MG TAB PO SCH (08:05)
[2019-08-16] MEDS: GABAPENTIN 400 MG CAP PO SCH (08:05)
[2019-08-16] MEDS: FERROUS SULFATE 325 MG TAB PO SCH (08:05)
[2019-08-16] MEDS: DOCUSATE SODIUM 100 MG CAP PO SCH (08:06)
[2019-08-16] MEDS: lamoTRIgine 25 MG TAB PO SCH (08:07)
[2019-08-16] MEDS: CITALOPRAM HBR 20 MG TAB PO SCH (08:07)
[2019-08-16] MEDS: LOSARTAN POTASSIUM 25 MG TAB PO SCH (08:07)
[2019-08-16] MEDS: APIXABAN 5 MG TAB PO SCH (08:07)
[2019-08-16] MEDS: guaiFENesin ER TAB 600 MG TAB PO SCH (08:08)
[2019-08-16] MEDS: HYDROXYCHLOROQUINE SULFATE PO SCH (08:09)
[2019-08-16] MEDS: HYDROMORPHONE HCL PO SCH (08:10)
[2019-08-16 10:25] VITALS: BP 104/55; O2SAT 95
[2019-08-16] MEDS: HYDROmorphone HCL 2 MG TAB PO PRN (11:26)
--- NOTE | 2019-08-16 19:14 | DS ---
SUPERVISING PHYSICIAN: Logan White M.D. ADMISSION DIAGNOSIS: 1. Sepsis secondary to cellulitis. 2. Left lower lobe pneumonia. 3. Congestive heart failure. 4. Chronic obstructive pulmonary disease without exacerbation. 5. Diabetes mellitus type 2. 6. Depression. 7. Altered mental status. DISCHARGE DIAGNOSIS: 1. Sepsis secondary to cellulitis. 2. Left lower lobe pneumonia. 3. Congestive heart failure. 4. Chronic obstructive pulmonary disease without exacerbation. 5. Diabetes mellitus type 2. 6. Depression. 7. Altered mental status. HOSPITAL COURSE: This is a 64 year-old female who was originally admitted back on 08/04/19 for severe sepsis secondary to a urinary tract infection, pneumonia as well as cellulitis. She actually decompensated the day of admission and required treatment for septic shock. She progressed fairly well on antibiotics, however was quite weak and therefore went to Swing Bed status for strengthening. She remained on IV vancomycin therapy for her cellulitis. She progressed well doing physical therapy as well as utilizing antibiotics. On day of discharge today, I spoke with Dr. Wallace who states that if the cellulitis has resolved we could stop the antibiotics, and therefore we did. We are discharging back to the [facility] facility that she stays [facility] with her previous medications. No further antibiotics are necessary at this time. Diet will be as per her usual diet. [id number]
== END 2019-08-16 14:32 | DRG 602 ==
LOC: MS 15:58
PROVIDERS: ADMIT Nurse Practitioner Family; ATTEND Nurse Practitioner
DX: L03.116 Cellulitis of left lower limb (principal); J18.1 Lobar pneumonia, unspecified organism; I50.20 Unspecified systolic (congestive) heart failure; J44.0 Chronic obstructive pulmonary disease with (acute) lower respiratory infection; R53.1 Weakness; E11.9 Type 2 diabetes mellitus without complications; F32.9 Major depressive disorder, single episode, unspecified; I11.0 Hypertensive heart disease with heart failure; E89.0 Postprocedural hypothyroidism; I25.2 Old myocardial infarction; M81.0 Age-related osteoporosis without current pathological fracture; M19.90 Unspecified osteoarthritis, unspecified site; F41.9 Anxiety disorder, unspecified; D50.9 Iron deficiency anemia, unspecified; E78.5 Hyperlipidemia, unspecified; F17.210 Nicotine dependence, cigarettes, uncomplicated; Z66 Do not resuscitate; Z88.2 Allergy status to sulfonamides; Z88.1 Allergy status to other antibiotic agents; Z88.8 Allergy status to other drugs, medicaments and biological substances; Z95.810 Presence of automatic (implantable) cardiac defibrillator

== ENCOUNTER → 2019-11-25 | Outpatient (CLI) | payer MEDICARE, MEDICAID | LOC: GMAM 14:40 | PROVIDERS: ATTEND Family Medicine | DX: E03.9 Hypothyroidism, unspecified (principal); E55.9 Vitamin D deficiency, unspecified; J44.9 Chronic obstructive pulmonary disease, unspecified ==

== ENCOUNTER → 2020-08-07 | Outpatient (CLI) | payer MEDICARE, MEDICAID | LOC: GMAM 16:42 | PROVIDERS: ATTEND Family Medicine | DX: S91.209A Unspecified open wound of unspecified toe(s) with damage to nail, initial encounter (principal); E11.9 Type 2 diabetes mellitus without complications ==